=== PATIENT | female | born 1985 | race Caucasian/White ===

== ENCOUNTER 2017-01-18 18:43 | Emergency (ER) | payer SELFPAY ==
[~2017-01-18] VITALS: Ht 175.3 cm; Wt 108.4 kg
[~2017-01-18 18:43] MED LIST: ACHD5005 PO; ALBU17AE23 IH; ALPR2TAB2 PO; AMLO10TA82; ASEN10TA9 SL; ASEN5TAB7 SL; BENZ100C18 PO; CEFP500T4 PO; CHLO500T2 PO; CLIN300C3 PO; CLN150C PO; CYCL10TA9 PO; DOXE10CA PO; DOXY100C2 PO; DULO60CA6 PO; EST.1TD TD; ESTR1TAB27 PO; GBPN100C PO; GUAN1TAB PO; HYDR-1231 PO; HYDR-3714 PO; LAMO150T2 PO; LAMO50TA3 PO; LISD40CA3; LITH300C; MELO15TA14 PO; METH4TAB PO; METR500T PO; NAPR220C PO; NITR100C3 PO; OLN10T PO; ONDAN4ODT PO; OXYC-12 PO; PHEN100T26 PO; PNT40TEC PO; PRD20T PO; PRED20TA PO; PROP1TAB77; PROVERA; QUET400T PO; SUCR1TAB PO; SULF1TAB35 PO; SULF1TAB38 PO; TEMA30CA; TMZP15C PO; TPR100T PO; TRAM50TA2 PO; TRAZ150T42 PO; TRIA0.253 PO; TRIA16.5 NS; ZOLP12.5 PO; [UNRECOGNIZED DRUG - OTHER]
--- OUTSIDE RECORDS SUMMARY | 2017-01-18 18:48 | XMS REPORT | Continuity of Care Document ---
Author Author [facility] Organization [facility] Address Unknown Phone Unavailable Care Team Providers Care Emts Name Role Phone GelacioAlbinoTrini PCP [phone] Source Comments Some departments are not documenting in the electronic medical record. If you do not see the information that you expected, contact Release of Information in the Health Information Management department at [phone] for further assistance in locating additional records.[facility] Active Allergies and Adverse Reactions Allergen Noted Date Severity Reactions Comments Erythromycin 11/03/2016 High ANAPHYLAXIS [place] Juice 11/03/2016 High ANAPHYLAXIS Penicillins 11/03/2016 High ANAPHYLAXIS Remeron 11/03/2016 Medium SHORTNESS OF BREATH Current Medications Prescription Sig. Disp. Refills Start End Date Status Date prazosin (MINIPRESS) 5 mg Take 15 mg by mouth at Active capsule bedtime daily. lithium carbonate Take 300 mg by mouth at Active (ESKALITH) 300 mg capsule bedtime daily. Take with food. carBAMazepine (TEGRETOL) Take 400 mg by mouth Active 200 mg tablet daily. temazepam (RESTORIL) 30 Take 30 mg by mouth at Active mg capsule bedtime as needed. ibuprofen (MOTRIN) 800 mg Take 800 mg by mouth Active tablet every 8 hours as needed for Pain. Take with food. ALPRAZolam(+) (XANAX) 2 Take 1 mg by mouth three Active mg tablet times daily as needed for Anxiety. lisdexamfetamine(+) Take 30 mg by mouth every Active (VYVANSE) 30 mg capsule morning amitriptyline (ELAVIL) 50 Take 50 mg by mouth at Active mg tablet bedtime as needed. methocarbamol (ROBAXIN) Take 1-2 Tabs by mouth 180 Tab 3 12/23/19 Active 500 mg tablet three times daily as 17 needed for Muscle Cramps or Spasms. 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, without status epilepticus 11/03/2016 (HCC) Anxiety 11/03/2016 Chronic bilateral low back pain with bilateral sciatica 11/03/2016 Most Recent Encounters Date Type Specialty Providers Description 01/04/2017 [facility] Naomi Lind MD Encounter 01/04/2017 [facility] Naomi Lind MD Encounter 01/04/2017 Office Visit Neurology Jose Pandey DO Numbness in feet (Primary Dx); Neuropathy of left peroneal nerve 01/04/2017 Ancillary Naomi Lind MD Aneurysm, cerebral Orders (Primary Dx) 01/04/2017 Ancillary Naomi Lind MD Orders 01/02/2017 Screening Form 12/23/2016 Office Visit Pain Management Denny Orourke MD Lumbar radiculopathy (Primary Dx) 12/09/2016 Ancillary Naomi Lind MD Low back pain, Orders unspecified back pain laterality, unspecified chronicity, with sciatica presence unspecified (Primary Dx); Aneurysm, cerebral 12/09/2016 Ancillary Neurology Adrian Young MD 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, intractable, without status epilepticus (HCC) (Primary Dx) 12/09/2016 Ancillary Naomi Lind MD Orders 12/09/2016 Ancillary Naomi Lind MD Orders 12/07/2016 [facility] Janeth Han MD Panniculitis, unspecified Encounter 12/07/2016 [facility] Marco Antonio Vernon Panniculitis, unspecified Encounter 12/07/2016 [facility] Marco Antonio Vernon Encounter MD 12/07/2016 Office Visit Dermatology Janeth Han MD Panniculitis (Primary Dx); Multiple nevi 11/29/2016 Ancillary Naomi Lind MD Orders 11/17/2016 [facility] Naomi Lind MD Encounter 11/03/2016 [facility] Summer Lozoya MBBS Epileptic seizures Encounter related to external causes, not intractable, without status epilepticus (HCC) 11/03/2016 Office Visit General Internal Medicine Summer Lozoya MBBS Peripheral polyneuropathy (HCC) (Primary Dx); 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, without status epilepticus (HCC); Anxiety; Chronic bilateral low back pain with bilateral sciatica Social History Tobacco Use Types Packs/Day Years Used Date Current Every Day Smoker Last Filed Vital Signs Vital Sign Reading Time Taken Blood Pressure 153/101 01/04/2017 1:52 PM [employer] Pulse 66 01/04/2017 1:52 PM [employer] Temperature 36.6 C (97.8 F) 01/04/2017 1:52 PM [employer] Respiratory Rate 18 01/04/2017 1:52 PM [employer] Height 1.753 m (5' 9") 01/04/2017 4:11 PM [employer] Weight 109.77 kg (242 lb) 01/04/2017 4:11 PM [employer] Body Mass Index 35.72 01/04/2017 4:11 PM [employer] Oxygen Saturation 99% 01/04/2017 1:52 PM [employer] Plan of Care Date Type Specialty Providers Description 02/17/2017 Appointment Gastroenterology Giovanni Hurley MD [address] [facility] [address] [place] [address] Health Maintenance Due Date Last Done Comments Physical (Comprehensive) 1994 Exam Pertussis Vaccine 1998 Tetanus Vaccine 2004 Cervical Cancer Screening 2008 Influenza Vaccine 08/21/2017 Postponed from 07/21/2017 (Patient declined) Results from Last 3 Months MRI HEAD WO CONTRAST (01/04/2017 5:45 PM) Impressions MR brain: Unremarkable MRI brain with attention to the temporal lobes. MRA head: Unremarkable MRA head. Approved by Steve Lyles M.D. on 01/05/2017 8:35 AM By my electronic signature, I attest that I have personally reviewed the images for this examination and formulated the interpretations and opinions expressed in this report Finalized by Neel Nagy M.D. on 01/05/2017 9:28 AM. Dictated by Steve Lyles M.D. on 01/05/2017 7:41 AM. Narrative EXAM: MRI AND MRA BRAIN HISTORY: Neuropathy, epilepsy, numbness. TECHNIQUE: Multiplanar and multisequence MR imaging of the head was performed without administration of gadolinium contrast. 3D [id number]-[id number] images of the [place] was performed without contrast. MRA maximum intensity projection images were obtained of the brain with image postprocessing. Additional dedicated coronal sequences were obtained of the mesial temporal lobes. COMPARISON: None. FINDINGS: MR brain: The ventricles and subarachnoid spaces are normal in size and configuration. Brain parenchyma is normal in signal. There is no midline shift or mass effect. There is no area of abnormal contrast enhancement. The vascular flow-voids are unremarkable. Diffusion weighted imaging is not indicative of acute or recent infarct. The temporal lobes are symmetric and without signal abnormality. No migrational anomaly is identified. MRA head: There is patient motion limited evaluation of the basilar and cavernous and supraclinoid internal carotid arteries. The distal internal carotid, vertebral, and basilar arteries are patent without focal narrowing or occlusion. There is incidental origin of the left TRIAL PARALEGAL. The anterior, middle, and posterior cerebral arteries are patent without focal narrowing. No aneurysm or arteriovenous malformation is identified. Procedure Note Interface, Radiant Results - [facility] Jan 05, 2017 9:31 AM [employer] EXAM: MRI AND MRA BRAIN HISTORY: Neuropathy, epilepsy, numbness. TECHNIQUE: Multiplanar and multisequence MR imaging of the head was performed without administration of gadolinium contrast. 3D [id number]-by-[id number] images of the [place] was performed without contrast. MRA maximum intensity projection images were obtained of the brain with image postprocessing. Additional dedicated coronal sequences were obtained of the mesial temporal lobes. COMPARISON: None. FINDINGS: MR brain: The ventricles and subarachnoid spaces are normal in size and configuration. Brain parenchyma is normal in signal. There is no midline shift or mass effect. There is no area of abnormal contrast enhancement. The vascular flow-voids are unremarkable. Diffusion weighted imaging is not indicative of acute or recent infarct. The temporal lobes are symmetric and without signal abnormality. No migrational anomaly is identified. MRA head: There is patient motion limited evaluation of the basilar and cavernous and supraclinoid internal carotid arteries. The distal internal carotid, vertebral, and basilar arteries are patent without focal narrowing or occlusion. There is incidental origin of the left TRIAL PARALEGAL. The anterior, middle, and posterior cerebral arteries are patent without focal narrowing. No aneurysm or arteriovenous malformation is identified. IMPRESSION MR brain: Unremarkable MRI brain with attention to the temporal lobes. MRA head: Unremarkable MRA head. Approved by Steve Lyles M.D. on 01/05/2017 8:35 AM By my electronic signature, I attest that I have personally reviewed the images for this examination and formulated the interpretations and opinions expressed in this report Finalized by Neel Nagy M.D. on 01/05/2017 9:28 AM. Dictated by Steve Lyles M.D. on 01/05/2017 7:41 AM. MRA HEAD WO CONTRAST (01/04/2017 5:45 PM) Impressions MR brain: Unremarkable MRI brain with attention to the temporal lobes. MRA head: Unremarkable MRA head. Approved by Steve Lyles M.D. on 01/05/2017 8:35 AM By my electronic signature, I attest that I have personally reviewed the images for this examination and formulated the interpretations and opinions expressed in this report Finalized by Neel Nagy M.D. on 01/05/2017 9:28 AM. Dictated by Steve Lyles M.D. on 01/05/2017 7:41 AM. Narrative EXAM: MRI AND MRA BRAIN HISTORY: Neuropathy, epilepsy, numbness. TECHNIQUE: Multiplanar and multisequence MR imaging of the head was performed without administration of gadolinium contrast. 3D rxmm-cu-afrpys images of the [place] was performed without contrast. MRA maximum intensity projection images were obtained of the brain with image postprocessing. Additional dedicated coronal sequences were obtained of the mesial temporal lobes. COMPARISON: None. FINDINGS: MR brain: The ventricles and subarachnoid spaces are normal in size and configuration. Brain parenchyma is normal in signal. There is no midline shift or mass effect. There is no area of abnormal contrast enhancement. The vascular flow-voids are unremarkable. Diffusion weighted imaging is not indicative of acute or recent infarct. The temporal lobes are symmetric and without signal abnormality. No migrational anomaly is identified. MRA head: There is patient motion limited evaluation of the basilar and cavernous and supraclinoid internal carotid arteries. The distal internal carotid, vertebral, and basilar arteries are patent without focal narrowing or occlusion. There is incidental origin of the left TRIAL PAR[place]GAL. The anterior, middle, and posterior cerebral arteries are patent without focal narrowing. No aneurysm or arteriovenous malformation is identified. Procedure Note Interface, Radiant Results - [facility] Jan 05, 2017 9:31 AM [employer] EXAM: MRI AND MRA BRAIN HISTORY: Neuropathy, epilepsy, numbness. TECHNIQUE: Multiplanar and multisequence MR imaging of the head was performed without administration of gadolinium contrast. 3D lyvm-hm-qghupn images of the [place] was performed without contrast. MRA maximum intensity projection images were obtained of the brain with image postprocessing. Additional dedicated coronal sequences were obtained of the mesial temporal lobes. COMPARISON: None. FINDINGS: MR brain: The ventricles and subarachnoid spaces are normal in size and configuration. Brain parenchyma is normal in signal. There is no midline shift or mass effect. There is no area of abnormal contrast enhancement. The vascular flow-voids are unremarkable. Diffusion weighted imaging is not indicative of acute or recent infarct. The temporal lobes are symmetric and without signal abnormality. No migrational anomaly is identified. MRA head: There is patient motion limited evaluation of the basilar and cavernous and supraclinoid internal carotid arteries. The distal internal carotid, vertebral, and basilar arteries are patent without focal narrowing or occlusion. There is incidental origin of the left TRIAL [place]. The anterior, middle, and posterior cerebral arteries are patent without focal narrowing. No aneurysm or arteriovenous malformation is identified. IMPRESSION MR brain: Unremarkable MRI brain with attention to the temporal lobes. MRA head: Unremarkable MRA head. Approved by Steve Lyles M.D. on 01/05/2017 8:35 AM By my electronic signature, I attest that I have personally reviewed the images for this examination and formulated the interpretations and opinions expressed in this report Finalized by Neel Nagy M.D. on 01/05/2017 9:28 AM. Dictated by Steve Lyles M.D. on 01/05/2017 7:41 AM. MRI L-SPINE WO CONTRAST (01/04/2017 5:15 PM) Impressions 1. Left foraminal disc herniation at L3-L4 displacing the extraforaminal left L3 nerve. 2. No additional levels of significant degenerative stenosis. 3. Mild degenerative disc disease and posterior annular fissures at L4-5 and L5- S1. 4. 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 Approved by Steve Lyles M.D. on 01/05/2017 8:35 AM By my electronic signature, I attest that I have personally reviewed the images for this examination and formulated the interpretations and opinions expressed in this report Finalized by Neel Nagy M.D. on 01/05/2017 9:33 AM. Dictated by Steve Lyles M.D. on 01/05/2017 7:28 AM. Narrative EXAM: MRI L-SPINE HISTORY: Chronic bilateral low back pain with bilateral sciatica. Numbness in feet. Technique: Multiple sagittal and axial MR sequences were obtained of the lumbar spine without the administration of intravenous contrast. Comparison: None. FINDINGS: There is normal alignment of the lumbar spine. The vertebral body heights are well-maintained apart from a small Schmorl's node within the inferior endplate at L2. There is a small intraosseous hemangioma within the superior left L1 vertebral body. The bone marrow signal is otherwise within normal limits. The paraspinal soft tissues are unremarkable. The visualized bilateral sacroiliac joint spaces are well-maintained. At T12-L1, there is no significant central or neural foraminal stenosis. At L1-2, there is mild disc degeneration and a minimal disc bulge without significant central or neural foraminal stenosis. At L2-3, there is disc degeneration and a small disc bulge resulting in minimal central stenosis without significant neural foraminal stenosis. At L3-4, there is disc degeneration and a left foraminal disc herniation displacing the left L3 nerve root and resulting in mild left neural foraminal stenosis. At L4-5, there is disc degeneration, posterior annular fissure, a small disc bulge, and facet hypertrophy which results in mild right lateral recess stenosis containing conjoined right L5 and S1 nerve roots. At L5-S1, there is disc degeneration, a posterior fissure, without significant central or neural foraminal stenosis. Left L5 and S1 nerve roots are conjoined within the left lateral recess. Procedure Note Interface, Radiant Results - [facility] Jan 05, 2017 9:36 AM [employer] EXAM: MRI L-SPINE HISTORY: Chronic bilateral low back pain with bilateral sciatica. Numbness in feet. Technique: Multiple sagittal and axial MR sequences were obtained of the lumbar spine without the administration of intravenous contrast. Comparison: None. FINDINGS: There is normal alignment of the lumbar spine. The vertebral body heights are well-maintained apart from a small Schmorl's node within the inferior endplate at L2. There is a small intraosseous hemangioma within the superior left L1 vertebral body. The bone marrow signal is otherwise within normal limits. The paraspinal soft tissues are unremarkable. The visualized bilateral sacroiliac joint spaces are well-maintained. At T12-L1, there is no significant central or neural foraminal stenosis. At L1-2, there is mild disc degeneration and a minimal disc bulge without significant central or neural foraminal stenosis. At L2-3, there is disc degeneration and a small disc bulge resulting in minimal central stenosis without significant neural foraminal stenosis. At L3-4, there is disc degeneration and a left foraminal disc herniation displacing the left L3 nerve root and resulting in mild left neural foraminal stenosis. At L4-5, there is disc degeneration, posterior annular fissure, a small disc bulge, and facet hypertrophy which results in mild right lateral recess stenosis containing conjoined right L5 and S1 nerve roots. At L5-S1, there is disc degeneration, a posterior fissure, without significant central or neural foraminal stenosis. Left L5 and S1 nerve roots are conjoined within the left lateral recess. IMPRESSION 1. Left foraminal disc herniation at L3-L4 displacing the extraforaminal left L3 nerve. 2. No additional levels of significant degenerative stenosis. 3. Mild degenerative disc disease and posterior annular fissures at L4-5 and L5 -S1. 4. 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 Approved by Steve Lyles M.D. on 01/05/2017 8:35 AM By my electronic signature, I attest that I have personally reviewed the images for this examination and formulated the interpretations and opinions expressed in this report Finalized by Neel Nagy M.D. on 01/05/2017 9:33 AM. Dictated by Steve Lyles M.D. on 01/05/2017 7:28 AM. EMG ORDER (01/04/2017)T SPOT TB (12/07/2016 12:03 PM) Component Value Range T Spot TB Negative The test result is Negative because the spot count in (Panel A minus Nil Control) and (Panel B minus Nil Control) is less than or equal to 4. This includes values less than zero.[id number]: Diagnosing or excluding tuberculosis disease, and assessing the probability of LTBI, requires a combination of epidemiological, historical, medical and diagnostic findings that should be taken into account when interpreting T-SPOT.TB test results. Refer to the most recent CDC guidance (http://www.cdc.gov/tb/publications/guidelines/def dee.htm) for detailed recommendations on diagnosing TB infection (including disease) and selecting persons for testing. Guidelines set forth by the Centers of Disease Control and Prevention (CDC) recommend contacts of a person with tuberculosis (TB) disease who have a negative initial interferon-gamma release assay (IGRA) or TST within 8 weeks of exposure be retested 8 - 10 weeks after last exposure. X0d0a Neg Control TB Spot Count 0 Panel A TB Spot Count 0 Panel B TB Spot Count 0 Pos Control TB Spot Count >20 Specimen Blood CHEST 2 VIEWS (12/07/2016 11:27 AM) Impressions No acute cardiopulmonary abnormality. Approved by Sam Barragan M.D. on 12/07/2016 2:53 PM By my electronic signature, I attest that I have personally reviewed the images for this examination and formulated the interpretations and opinions expressed in this report Finalized by Tessy Christian M.D. on 12/07/2016 2:53 PM. Dictated by Sam Barragan M.D. on 12/07/2016 1:23 PM. Narrative CHEST 2 VIEWS Clinical history: Erythema nodosum Comparison: Findings: The cardiac silhouette is normal in size and shape. Pulmonary vasculature is within normal limits. No pleural effusion, focal consolidation, or pneumothorax is identified. None available. Procedure Note Interface, Radiant Results - MonDec 07, 2016 2:56 PM [employer] CHEST 2 VIEWS Clinical history: Erythema nodosum Comparison: Findings: The cardiac silhouette is normal in size and shape. Pulmonary vasculature is within normal limits. No pleural effusion, focal consolidation, or pneumothorax is identified. None available. IMPRESSION No acute cardiopulmonary abnormality. Approved by Sam Barragan M.D. on 12/07/2016 2:53 PM By my electronic signature, I attest that I have personally reviewed the images for this examination and formulated the interpretations and opinions expressed in this report Finalized by Tessy Christian M.D. on 12/07/2016 2:53 PM. Dictated by Sam Barragan M.D. on 12/07/2016 1:23 PM. SURGICAL PATHOLOGY (12/07/2016 11:18 AM) Component Value Range PATHOLOGY REPORT [facility] [email or web address] Christine Suarez MD, PhD, Director of Anatomic Pathology Department of Pathology and Laboratory Medicine [address] [place] [id number] Surgical Pathology Office: [phone] SURGICAL PATHOLOGY REPORT NAME: COLBY MITCHELL SURG PATH #: [id number] MR #: [id number] SPECIMEN CLASS: SR BILLING #: [id number] ALT ID #: LOCATION: DERM DATE OF PROCEDURE: 12/07/2016 AGE: 31 SEX: F DATE RECEIVED: 12/07/2016 : 1985 TIME RECEIVED: 11:18 PHYSICIAN: MARCO ANTONIO VERNON MD DATE OF REPORT: 12/08/2016 COPY TO: JANETH HAN DATE OF PRINTIN12/08/2016 ################################################## ###################### Final Diagnosis: A. Left lower leg: -- Septal panniculitis with eosinophils, compatible with erythema nodosum Attestation: By this signature, I attest that I have personally formulated the final interpretation expressed in this report and that the above diagnosis is based upon my examination of the slides and/or other material indicated in this report. +++Electronically Signed Out By+++ gf/12/08/2016 Interpreted by: Bal Medina MD, Attending Physician 12/08/2016 ################################################## ###################### Material Received: A: left lower leg History: A. Erythema nodosum >other panniculitis Gross Description: A. Labeled "left lower leg" is a 0.6 cm in length by 0.4 cm in diameter punch, bisected, all in A1. (jdn) jdn2/12/07/2016 SKIN BIOPSY/EXCISION OF SKIN LESION (12/07/2016 10:54 AM)ANTI-NUCLEAR AB(YANA)- QUANT (11/03/2016 11:17 AM) Component Value Range YANA Titer/Pattern 160 (H)Comment: SPECKLED <80 TOTAL PROTEIN SEP (11/03/2016 11:17 AM) Component Value Range Total Protein 6.7 6.0-8.0 g/dL Specimen Blood HEMOGLOBIN A1C (11/03/2016 11:17 AM) Component Value Range Hemoglobin A1C 5.3Comment: 4.0-6.0 % The ADA recommends that most patients with type 1 and type 2 diabetes maintain an A1c level <7%. Specimen Blood CBC AND DIFF (11/03/2016 11:17 AM) Component Value Range White Blood Cells 6.0 4.5-11.0 K/UL RBC 4.23 4.0-5.0 M/UL Hemoglobin 13.4 12.0-15.0 GM/DL Hematocrit 39.9 36-45 % MCV 94.3 80-100 FL MCH 31.7 26-34 PG MCHC 33.6 32.0-36.0 G/DL RDW 12.9 11-15 % Platelet Count 270 150-400 K/UL MPV 7.6 7-11 FL Neutrophils 62 41-77 % Lymphocytes 30 24-44 % Monocytes 5 4-12 % Eosinophils 2 0-5 % Basophils 1 0-2 % Absolute Neutrophil Count 3.80 1.8-7.0 K/UL Absolute Lymph Count 1.80 1.0-4.8 K/UL Absolute Monocyte Count 0.30 0-0.80 K/UL Absolute Eosinophil Count 0.10 0-0.45 K/UL Absolute Basophil Count 0.00 0-0.20 K/UL Specimen Blood SED RATE (11/03/2016 11:17 AM) Component Value Range Sed Rate -ESR 7 0-20 MM/HR Specimen Blood ELECTROPHORESIS-SERUM PROTEIN (11/03/2016 11:17 AM) Component Value Range Total Protein-SEP 6.6 6.0-8.0 G/DL Albumin % 61.9 48-68 % Alpha 1 % 4.9 2-6 % Alpha 2 % 13.0 5-15 % Beta %,Serum 9.8 9-17 % Gamma % 10.4 9-21 % Interpretation - SEP NORMAL ELECTROPHORETIC PATTERN Pathologist Signature INTERPRETED BY EDA FLEMING M.D. By the PATH SIGNATURE ABOVE, I attest that I have personally formulated the final interpretation expressed in this report and that the above diagnosis is based upon my examination of the slides and/or other material indicated in this report. Specimen Blood VITAMIN B12 (11/03/2016 11:17 AM) Component Value Range Vitamin B12 219 180-914 PG/ML Specimen Blood FOLATE, SERUM (11/03/2016 11:17 AM) Component Value Range Serum Folate 6.8Comment: NOTE NEW REFERENCE RANGES >3.9 NG/ML Specimen Blood ANTI-NUCLEAR ANTIBODY(YANA) (11/03/2016 11:17 AM) Component Value Range YANA Screen SEE TITER <80 TITER Specimen Blood RHEUMATOID FACTOR (RF) (11/03/2016 11:17 AM) Component Value Range Rheum Factor Screen <20 <24 IU/mL Specimen Blood COMPREHENSIVE METABOLIC PANEL (11/03/2016 11:17 AM) Component Value Range Sodium 140 137-147 MMOL/L Potassium 4.1 3.5-5.1 MMOL/L Chloride 106 98-110 MMOL/L Glucose 97 70-100 MG/DL Blood Urea Nitrogen 10 7-25 MG/DL Creatinine 0.91 0.4-1.00 MG/DL Calcium 9.6 8.5-10.6 MG/DL Total Protein 6.9 6.0-8.0 G/DL Total Bilirubin 0.3 0.3-1.2 MG/DL Albumin 4.3 3.5-5.0 G/DL Alk Phosphatase 70 25-110 U/L AST (SGOT) 13 7-40 U/L CO2 31 (H) 21-30 MMOL/L ALT (SGPT) 14 7-56 U/L Anion Gap 3 3-12 eGFR Non >60Comment: >60 mL/min The eGFR is not validated for use in drug dosing adjustments. Continue to use estimated creatinine clearance per dosing reference text. Please contact the Clinical Pharmacist for questions. eGFR >60Comment: >60 mL/min The eGFR is not validated for use in drug dosing adjustments. Continue to use estimated creatinine clearance per dosing reference text. Please contact the Clinical Pharmacist for questions. Specimen Blood TSH WITH FREE T4 REFLEX (11/03/2016 11:17 AM) Component Value Range TSH 1.252 0.35-5.00 MCU/ML Specimen Blood
--- NOTE | 2017-01-18 18:54 | ED Dyspnea ---
General Stated Complaint: TROUBLE BREATHING Source of Information: Patient Exam Limitations: No Limitations History of Present Illness Time Seen by Provider: 18:53 Initial Comments To ER with reports of dyspnea. She states that she's been battling an upper respiratory infection with a cough, runny nose, sore throat and fever for the past few days. She has a history of asthma and today she became significantly short of breath and nearly blacked out at work. Timing/Duration: Increasing Severity: Moderate Activities at Onset: None Associated Symptoms: Cough Allergies and Home Medications Allergies Coded Allergies: erythromycin base (Verified Allergy, Unknown, 01/11/06) lidocaine (Verified Allergy, Unknown, 07/02/10) PT STATES THAT SHE IS OKAY WITH THE LIDOCAINE THEY USE WITH IV STARTS penicillin G (Verified Allergy, Unknown, 01/11/06) mirtazapine (Verified Adverse Reaction, Unknown, ANGRY, 05/11/15) Uncoded Allergies: ORANGE JUICE (Allergy, Severe, STOPPED BREATHING, 02/24/11) Home Medications Alprazolam 2 Mg Tablet 2 MG PO TID (Reported) Lamotrigine 150 Mg Tablet 150 MG PO BID (Reported) Lisdexamfetamine Dimesylate 40 Mg Capsule #30 (Reported) [place] Carbonate 300 Mg Capsule #30 300 (Reported) Meloxicam 15 Mg Tablet #10 15 MG PO DAILY Prescribed by: BLUE LOVE on 07/26/16 1425 Naproxen Sodium 220 Mg Capsule 220 MG PO BID (Reported) Ondansetron Hcl 4 Mg Tab #5 4 MG PO Q4H FOR NAUSEA AND VOMITING Prescribed by: BLUE LOVE on 10/09/13 2323 Prednisone 20 Mg Tab #10 40 MG PO DAILY Prescribed by: BHARATI WELLS on 07/02/16 1532 Sulfamethoxazole/Trimethoprim 1 Each Tablet #20 1 EACH PO BID Prescribed by: BLUE LOVE on 07/26/16 1425 Temazepam 30 Mg Capsule #30 (Reported) Topiramate 100 Mg Tablet 100 MG PO BID (Reported) Tramadol HCl 50 Mg Tablet #14 50 MG PO Q4H PRN PRN PAIN Prescribed by: BHARATI WELLS on 07/02/16 1532 Constitutional: see HPI EENTM: see HPI Respiratory: see HPI coughNo hemoptysis, No orthopnea, No phlegm, short of breathNo wheezing Cardiovascular: no symptoms reported Genitourinary: no symptoms reported Musculoskeletal: no symptoms reported Skin: no symptoms reported Psychiatric/Neurological: No Symptoms Reported Endocrine: No Symptoms Reported Past Uicdlxb-[id number]-Shieke Hx Patient Social History Type Used: Cigarettes Recent Foreign Travel: No Contact w/Someone Who Travel: No Recent Hopitalizations: No Immunizations Up To Date Tetanus Booster (TDap): More than 5yrs Date of Pneumonia Vaccine: Sep 27, 2010 Date of Influenza Vaccine: Jul 21, 2013 Seasonal Allergies Seasonal Allergies: No Surgeries HX Surgeries: Yes Surgeries: Abdominal, Section, Gallbladder, Hysterectomy, Oophorectomy , Orthopedic Respiratory Hx Respiratory Disorders: Yes Respiratory Disorders: Asthma Cardiovascular Hx Cardiac Disorders: Yes (HTN WITH WEIGHT GAIN) Cardiac Disorders: Hypertension, Irregular Heartbeat Neurological Hx Neurological Disorders: Yes Neurological Disorders: Concussion, Seizure Disorder Reproductive System Hx Reproductive Disorders: No Sexually Transmitted Disease: No HIV/AIDS: No Female Reproductive Disorders: Menstrual Problems, Ovarian Cyst [employer] History: Hysterectomy Genitourinary Hx Genitourinary Disorders: Yes (INTERSTITIAL CYSTITIS) Genitourinary Disorders: UTI-Chronic Gastrointestinal Hx Gastrointestinal Disorders: Yes (S/P ASHVIN; BENIGN COLON TUMOR-PER PT) Gastrointestinal Disorders: Gall Bladder Disease Musculoskeletal Hx Musculoskeletal Disorders: Yes Musculoskeletal Disorders: Fractures Endocrine Hx Endocrine Disorders: No HEENT HX ENT Disorders: No Cancer Hx Cancer: No Psychosocial Hx Psychiatric Problems: Yes Behavioral Health Disorders: Anxiety, Bipolar, Personality Disorder, Schizophrenia, Depression Integumentary HX Skin/Integumentary Disorder: No Blood Transfusions Hx Blood Disorders: No Adverse Reaction to a Blood Tr: No Family Medical History Significant Family History: No Pertinent Family Hx Family Medial History: Cancer GRANDPARENTS Cataract GRANDPARENTS Congestive heart failure GRANDPARENTS Family history: Alzheimer's disease GRANDPARENTS Family history: Arthritis GRANDPARENTS Family history: Asthma 03 MOTHER 09 BROTHER GRANDPARENTS Family history: Cardiovascular disease GRANDPARENTS Family history: Diabetes mellitus GRANDPARENTS Family history: Hypertension 03 MOTHER GRANDPARENTS Heart disease 09 BROTHER GRANDPARENTS History of - respiratory disease GRANDPARENTS Kidney disease 09 BROTHER Prostate cancer GRANDPARENTS Stroke GRANDPARENTS No Family History of: Abdominal aortic aneurysm Family history: Breast disease Family history: Gastrointestinal disease Family history: Thyroid disorder Physical Exam Vital Signs Vital Sign - Last 12Hours 01/18/17 18:55 Temp 98.1 Pulse 75 Resp 16 B/P 138/74 Pulse Ox 100 O2 Delivery Room Air Capillary Refill : General Appearance: No Apparent Distress WD/WNNo Anxious HEENT: PERRL/EOMI TMs Normal Neck: Full Range of Motion Normal Inspection Respiratory: No Accessory Muscle Use No Respiratory Distress Other (good air movement with no wheezing. Oxygen saturation 100 percent on room air. Respiratory rate 30s) Cardiovascular: Regular Rate, Rhythm Normal Peripheral Pulses Gastrointestinal: Normal Bowel Sounds Non Tender Soft Neurologic/Psychiatric: Alert Oriented x3 Progress/Results/Core Measures Results/Orders Lab Results Laboratory Tests Test 01/18/17 19:09 01/18/17 19:55 Range/Units Anion Gap 17 H 5-14 MMOL/L BUN/Creatinine Ratio 10 Basophils # (Auto) 0.0 0.0-0.1 10^3/uL Basophils (%) (Auto) 0 0-10 % Blood Urea Nitrogen 9 7-18 MG/DL Calcium Level 9.6 8.5-10.1 MG/DL Carbon Dioxide Level 18 L 21-32 MMOL/L Chloride Level 106 98-107 MMOL/L Creatinine 0.93 0.60-1.30 MG/DL D-Dimer 0.50 H 0.00-0.49 UG/ML Eosinophils # (Auto) 0.0 0.0-0.3 10^3/uL Eosinophils (%) (Auto) 0 0-10 % Estimat Glomerular Filtration Rate > 60 Glucose Level 93 70-105 MG/DL Hematocrit 41 35-52 % Hemoglobin 13.9 11.5-16.0 G/DL Lymphocytes # (Auto) 2.0 1.0-4.0 X 10^3 Lymphocytes (%) (Auto) 21 12-44 % Mean Corpuscular Hemoglobin 31 25-34 PG Mean Corpuscular Hemoglobin Concent 34 32-36 G/DL Mean Corpuscular Volume 92 80-99 FL Mean Platelet Volume 9.8 7.4-10.4 FL Monocytes # (Auto) 0.6 0.0-1.0 X 10^3 Monocytes (%) (Auto) 6 0-12 % Neutrophils # (Auto) 6.7 1.8-7.8 X 10^3 Neutrophils (%) (Auto) 72 42-75 % Platelet Count 301 130-400 10^3/uL Potassium Level 3.1 L 3.6-5.0 MMOL/L Red Blood Count 4.44 4.35-5.85 10^6/uL Red Cell Distribution Width 12.0 10.0-14.5 % Sodium Level 141 135-145 MMOL/L White Blood Count 9.3 4.3-11.0 10^3/uL Urine Bacteria NONE /HPF Urine Bilirubin NEGATIVE NEGATIVE Urine Casts NONE /LPF Urine Clarity CLEAR Urine Color OTHER H Urine Crystals NONE /LPF Urine Culture Indicated NO Urine Glucose (UA) NEGATIVE NEGATIVE Urine Ketones NEGATIVE NEGATIVE Urine Leukocyte Esterase 1+ H NEGATIVE Urine Mucus NEGATIVE /LPF Urine Nitrite NEGATIVE NEGATIVE Urine Protein NEGATIVE NEGATIVE Urine RBC RARE /HPF Urine RBC (Auto) NEGATIVE NEGATIVE Urine Specific [place] 1.010 L 1.016-1.022 Urine Squamous Epithelial Cells 0-2 /HPF Urine Urobilinogen NORMAL NORMAL MG/DL Urine WBC 2-5 /HPF Urine pH 7 5-9 My Orders Orders-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 Cbc With Automated Diff (01/18/17 18:51) Basic Metabolic Panel (01/18/17 18:51) Chest Pa/Lat (2 View) (01/18/17 18:51) Urine Bedside (01/18/17 18:51) Ua Culture If Indicated (01/18/17 18:51) Fibrin Degradation Products (01/18/17 18:51) Alprazolam Tablet (Xanax Tablet) (01/18/17 19:00) Potassium Chloride (Tablet) (Klor Con Ta (01/18/17 19:45) Ct Angio Chest W (01/18/17 19:45) Iohexol Injection (Omnipaque 350 Mg/Ml 1 (01/18/17 20:15) Di Iv Start (Assessment) .on IV start (01/18/17 20:01) Ns (Ivpb) (Sodium Chloride 0.9% Ivpb Bag (01/18/17 20:15) Medications Given in ED Current Medications Medications Dose Ordered Sig/Roland Route Start Time Stop Time Status Last Admin Dose Admin Iohexol 100 ml ONCE ONCE IV 01/18/17 20:15 01/18/17 20:16 DC 01/18/17 20:03 100 ML Sodium Chloride 100 ml ONCE ONCE IV 01/18/17 20:15 01/18/17 20:16 DC 01/18/17 20:03 100 ML Vital Signs/I&O Vital Sign - Last 12Hours 01/18/17 01/18/17 18:55 18:55 Temp 98.1 Pulse 75 Resp 16 B/P 138/74 Pulse Ox 100 O2 Delivery Room Air Room Air Departure Communication Progress Notes 2025-patient feels much better after 0.5 mg Xanax Impression Impression: Primary Impression: Anxiety Additional Impression: Bronchitis Disposition: HOME, SELF-CARE Condition: Stable Departure-Patient Inst. Decision time for Depature: 20:26 Referrals: [facility] (PCP/Family) Primary Care Physician Patient Instructions: Acute Bronchitis in Adults Add. Discharge Instructions: 1. Return to ER for any concerns 2. Follow-up with your doctor next week 3. Medication as directed Scripts D-Methorphan Hb/P-Epd HCl/Bpm (Bromfed Dm Cough Syrup)118 Ml Syrup5 Ml PO Q8H PRN CONGESTION #30 ML Prov:GERSON JAEGER APRN 01/18/17 GERSON JAEGER APRN Jan 18, 2017 18:54
[2017-01-18] MEDS ORDERED: ALPRAZolam 0.5 MG (XANAX) TAB PO SCH (19:00)
[2017-01-18 19:20] LABS: BASOPHILS % (AUTO) 0 % (0-10); EOSINOPHILS % (AUTO) 0 % (0-10); LYMPHOCYTES % (AUTO) 21 % (12-44); MEAN CORPUSCULAR HEMOGLOBIN 31 PG (25-34); MEAN CORPUSCULAR HGB CONC 34 G/DL (32-36); MEAN CORPUSCULAR VOLUME 92 FL (80-99); MEAN PLATELET VOLUME 9.8 FL (7.4-10.4); MONOCYTES # (AUTO) 0.6 X 10^3 (0.0-1.0); MONOCYTES % (AUTO) 6 % (0-12); NEUTROPHILS # (AUTO) 6.7 X 10^3 (1.8-7.8); NEUTROPHILS % (AUTO) 72 % (42-75); PLATELET COUNT 301 10^3/uL (130-400); RED BLOOD COUNT 4.44 10^6/uL (4.35-5.85); WHITE BLOOD COUNT 9.3 10^3/uL (4.3-11.0)
[2017-01-18 19:36] LABS: ANION GAP 17 MMOL/L (5-14); BLOOD UREA NITROGEN 9 MG/DL (7-18); BUN/CREATININE RATIO 10; CALCIUM 9.6 MG/DL (8.5-10.1); CARBON DIOXIDE 18 MMOL/L (21-32); CHLORIDE 106 MMOL/L (98-107); CREATININE SERUM 0.93 MG/DL (0.60-1.30); GFR ESTIMATED > 60; GLUCOSE 93 MG/DL (70-105); POTASSIUM 3.1 MMOL/L (3.6-5.0); SODIUM 141 MMOL/L (135-145)
[2017-01-18] MEDS ORDERED: KCL 10 MEQ TAB (MICRO K) PO ONE (19:45)
--- NOTE | 2017-01-18 20:00 | Diagnostic Imaging Report ---
INDICATION: A 32-year-old female with new onset of shortness of breath and chest pain. COMPARISON: CT chest dated 03/12/2014. FINDINGS: PA and lateral films of the chest show slight prominence of the central lung markings with some peribronchial cuffing. Some minimal perihilar and left basilar atelectatic infiltrates are seen but no significant consolidations. Cardiac contour is normal. Soft tissues and bony thorax are unremarkable. IMPRESSION: Reactive airway disease versus viral lower respiratory tract infection with some minimal perihilar and basilar atelectatic infiltrates but no significant consolidations. Dictated by: Dictated on workstation # [id number]
[2017-01-18 20:03] LABS: BILIRUBIN,URINE NEGATIVE (NEGATIVE); KETONES,URINE NEGATIVE (NEGATIVE); LEUKOCYTE ESTERASE ,URINE 1+ (NEGATIVE); NITRITE,URINE NEGATIVE (NEGATIVE); PH,URINE 7 (5-9); PROTEIN,URINE NEGATIVE (NEGATIVE); UROBILINOGEN,URINE NORMAL (NORMAL)
[2017-01-18 20:11] LABS: SQUAMOUS EPITHELIAL CELL,UR 0-2 /HPF
[2017-01-18] MEDS ORDERED: IOHEXOL 350 MG/ML 100 ML (OMNIPAQUE 350) VIAL IV ONE (20:15)
[2017-01-18] MEDS ORDERED: NS 100 ML (IVPB) BAG IV ONE (20:15)
--- NOTE | 2017-01-18 20:21 | Diagnostic Imaging Report ---
PROCEDURE: CT angiography of the chest with contrast. TECHNIQUE: Multiple contiguous axial images were obtained through the chest after uneventful bolus administration of intravenous contrast. Reconstructed CTA MIP acquisitions were also performed. INDICATION: A 32-year-old female presents with generalized malaise, severe shortness of breath, history of asthma, assess for possible pulmonary embolism. COMPARISONS: 05/16/2015. FINDINGS: There are a few shotty benign-appearing axillary nodes, but no evidence of axillary adenopathy. There is no evidence of hilar or mediastinal adenopathy. Cardiac contour is normal. The thoracic aortic contour is normal with no evidence of aneurysm or dissection. The bolus was mistimed, hence the pulmonary arteries are not adequately opacified; however, the pulmonary outflow tract as well as the right and left pulmonary arteries and their segmental branches are patent with no definite evidence of pulmonary embolism. The distal pulmonary arteries are poorly visualized. The lungs are clear with no evidence of consolidation, effusion, or pneumothorax. Limited assessment of the abdomen shows no overall gross abnormalities. IMPRESSION: Suboptimal opacification of the pulmonary arteries, but no CT angiographic evidence for aortic aneurysm, dissection, or pulmonary embolism. The lungs are clear with no evidence of consolidation, effusion, or pneumothorax. Limited assessment of the abdomen shows no gross abnormalities. Dictated by: Dictated on workstation # [id number]
[2017-01-18] MEDS ORDERED: D-ME118S33 PO (20:28)
[2017-01-18] MEDS ORDERED: RX-ALBUTEROL INHALER (VENTOLIN HFA) 18 GM IH STA (20:28)
[2017-01-18 20:31] VITALS: BP 143/86
[2017-01-18] MEDS ORDERED: RX-ALBUTEROL INHALER (PROAIR) 8 GM IH ONE (20:36)
== END 2017-01-18 20:40 | disposition home or self-care (01) ==
LOC: EDUNIT# 18:43 → ER 18:45
DX: J40 Bronchitis, not specified as acute or chronic (principal); F41.9 Anxiety disorder, unspecified; Z79.899 Other long term (current) drug therapy
CPT/HCPCS: 36415; 71020; 71275; 80048; 81000; 85025; 85379; 99283

== ENCOUNTER 2017-02-14 12:51 | Emergency (ER) | payer SELFPAY ==
[~2017-02-14] VITALS: Ht 175.3 cm; Wt 108.9 kg
[~2017-02-14 12:51] MED LIST changes: +D-ME118S33 PO
[2017-02-14] MEDS ORDERED: NS IV 1000 ML 1,000 ML IV ONE (13:42)
[2017-02-14] MEDS ORDERED: ONDANSETRON 4 MG/2 ML (SDV) Z0FRAN IVP ONE ×2 (13:45→16:30)
--- NOTE | 2017-02-14 13:53 | ED General ---
General Chief Complaint: Abdominal/GI Problems Stated Complaint: VOMITING Nursing Triage Note: pt reports n/v since yesterday and generalized body aches. Nursing Sepsis Screen: No Definite Risk Source of Information: Patient Exam Limitations: No Limitations History of Present Illness Time Seen by Provider: 13:53 Initial Comments 32-year-old female patient presents to the emergency department with one day onset of nausea and vomiting. Reports generalized body aches. Denies fever, chills, upper respiratory symptoms, dysuria, frequency, hematuria. Timing/Duration: 1 Day Modifying Factors: worse with Eating Allergies and Home Medications Allergies Coded Allergies: erythromycin base (Verified Allergy, Unknown, 01/11/06) lidocaine (Verified Allergy, Unknown, 07/02/10) PT STATES THAT SHE IS OKAY WITH THE LIDOCAINE THEY USE WITH IV STARTS penicillin G (Verified Allergy, Unknown, 01/11/06) mirtazapine (Verified Adverse Reaction, Unknown, ANGRY, 05/11/15) Uncoded Allergies: ORANGE JUICE (Allergy, Severe, STOPPED BREATHING, 02/24/11) Home Medications Alprazolam 2 Mg Tablet, 2 MG PO TID, (Reported) D-Methorphan Hb/P-Epd HCl/Bpm 118 Ml Syrup, 5 ML PO Q8H PRN for CONGESTION, #30 Prescribed by: GERSON JAEGER on 01/18/172027 Lamotrigine 150 Mg Tablet, 150 MG PO BID, (Reported) Lisdexamfetamine Dimesylate 40 Mg Capsule, #30 (Reported) [place] Carbonate 300 Mg Capsule, 300, #30 (Reported) Meloxicam 15 Mg Tablet, 15 MG PO DAILY, #10 Prescribed by: BLUE LOVE on 07/26/16 1425 Naproxen Sodium 220 Mg Capsule, 220 MG PO BID, (Reported) Nitrofurantoin Monohyd/M-Cryst 100 Mg Capsule, 1 TAB PO BID for 5 Days, #10 Ref 0 Prescribed by: BHARATI WELLS on 02/14/17 1612 Ondansetron 8 Mg Tab.rapdis, 8 MG PO Q6H PRN for NAUSEA/VOMITING, #10 Ref 0 Prescribed by: BHARATI WELLS on 02/14/17 1612 Ondansetron Hcl 4 Mg Tab, 4 MG PO Q4H, #5 FOR NAUSEA AND VOMITING Prescribed by: BLUE LOVE on 10/09/13 2323 Prednisone 20 Mg Tab, 40 MG PO DAILY, #10 Ref 0 Prescribed by: BHARATI WELLS on 07/02/16 1532 Sulfamethoxazole/Trimethoprim 1 Each Tablet, 1 EACH PO BID, #20 Prescribed by: BLUE LOVE on 07/26/16 1425 Temazepam 30 Mg Capsule, #30 (Reported) Topiramate 100 Mg Tablet, 100 MG PO BID, (Reported) Tramadol HCl 50 Mg Tablet, 50 MG PO Q4H PRN for PAIN, #14 Ref 0 Prescribed by: BHARATI WELLS on 07/02/16 1532 Constitutional: No chills, No fever, malaise EENTM: no symptoms reported Respiratory: No cough, No short of breath Cardiovascular: no symptoms reported Gastrointestinal: No abdominal pain, No constipation, No diarrhea, No hematemesis, loss of appetite, No melena, nausea, vomiting Genitourinary: No decreased output, No discharge, No dysuria, No frequency, No hematuria, No pain Musculoskeletal: no symptoms reported Skin: no symptoms reported Psychiatric/Neurological: No Symptoms Reported All Other Systems Reviewed Negative Unless Noted: Yes (Negative excepted noted.) Past Pphpbnt-Dythnu-Pyblnv Hx Patient Social History Alcohol Use: Denies Use Recreational Drug Use: Yes (IN THE PAST) Type Used: Cigarettes Recent Foreign Travel: No Contact w/Someone Who Travel: No Recent Infectious Disease Expo: No Recent Hopitalizations: No Immunizations Up To Date Tetanus Booster (TDap): More than 5yrs Date of Pneumonia Vaccine: Sep 27, 2010 Date of Influenza Vaccine: Jul 21, 2013 Seasonal Allergies Seasonal Allergies: No Surgeries HX Surgeries: Yes (skin graft) Surgeries: Abdominal, Section, Gallbladder, Hysterectomy, Oophorectomy , Orthopedic, Tubal Ligation Respiratory Hx Respiratory Disorders: Yes Respiratory Disorders: Asthma Cardiovascular Hx Cardiac Disorders: Yes (HTN WITH WEIGHT GAIN) Cardiac Disorders: Hypertension, Irregular Heartbeat Neurological Hx Neurological Disorders: Yes Neurological Disorders: Concussion, Seizure Disorder Reproductive System Hx Reproductive Disorders: No Sexually Transmitted Disease: No HIV/AIDS: No Female Reproductive Disorders: Menstrual Problems, 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 Genitourinary Hx Genitourinary Disorders: Yes (INTERSTITIAL CYSTITIS) Genitourinary Disorders: UTI-Chronic Gastrointestinal Hx Gastrointestinal Disorders: Yes (S/P ASHVIN; BENIGN COLON TUMOR-PER PT) Gastrointestinal Disorders: Gall Bladder Disease Musculoskeletal Hx Musculoskeletal Disorders: Yes Musculoskeletal Disorders: Fractures Endocrine Hx Endocrine Disorders: No HEENT HX ENT Disorders: No Cancer Hx Cancer: No Psychosocial Hx Psychiatric Problems: Yes Behavioral Health Disorders: Anxiety, Bipolar, Personality Disorder, Schizophrenia, Depression Integumentary HX Skin/Integumentary Disorder: No Blood Transfusions Hx Blood Disorders: No Adverse Reaction to a Blood Tr: No Reviewed Nursing Assessment Reviewed/Agree w Nursing PMH: Yes Family Medical History Significant Family History: No Pertinent Family Hx Family Medial History: Cancer GRANDPARENTS Cataract GRANDPARENTS Congestive heart failure GRANDPARENTS Family history: Alzheimer's disease GRANDPARENTS Family history: Arthritis GRANDPARENTS Family history: Asthma 03 MOTHER 09 BROTHER GRANDPARENTS Family history: Cardiovascular disease GRANDPARENTS Family history: Diabetes mellitus GRANDPARENTS Family history: Hypertension 03 MOTHER GRANDPARENTS Heart disease 09 BROTHER GRANDPARENTS History of - respiratory disease GRANDPARENTS Kidney disease 09 BROTHER Prostate cancer GRANDPARENTS Stroke GRANDPARENTS No Family History of: Abdominal aortic aneurysm Family history: Breast disease Family history: Gastrointestinal disease Family history: Thyroid disorder Physical Exam Vital Signs Capillary Refill : Less Than 3 Seconds General Appearance: No Apparent Distress, WD/WN HEENT: PERRL/EOMI, Pharynx Normal Neck: Normal Inspection, Supple Respiratory: Lungs Clear, Normal Breath Sounds, No Respiratory Distress Cardiovascular: Regular Rate, Rhythm, No Murmur, Normal Peripheral Pulses Gastrointestinal: Normal Bowel Sounds, No Organomegaly, Non Tender, Soft, No Distended Back: Normal Inspection, No CVA Tenderness Extremity: Normal Capillary Refill, No Pedal Edema Neurologic/Psychiatric: Alert, Oriented x3, Normal Mood/Affect Skin: Normal Color, Warm/Dry Progress/Results/Core Measures Results/Orders Lab Results My Orders Medications Given in ED Vital Signs/I&O Blood Pressure Mean: 111 Departure Communication Progress Notes Laboratory findings discussed with the patient. Patient reports feeling better with medications and IV fluids. Proceed with discharge to home. Patient instructed to follow-up with her primary care physician if no improvement in symptoms. Impression Impression: Primary Impression: Urinary tract infection Additional Impression: Nausea and vomiting Disposition: 01 HOME, SELF-CARE Condition: Improved Departure-Patient Inst. Decision time for Depature: 16:08 Referrals: [facility] (PCP/Family) Primary Care Physician Patient Instructions: [id number], Urinary Tract Infection, Adult (DC) Add. Discharge Instructions: All discharge instructions reviewed with patient and/or family. Voiced understanding. Medications as instructed. Tylenol Extra Strength [id number] as directed for pain or fever. Ibuprofen 800 mg by mouth every 8 hours as needed for pain or fever. Push fluids. Clear liquid diet until symptoms improve, then increase diet slowly to a low-fat , bland diet. Follow-up with the family practitioner for recheck if no improvement in symptoms. Return to the emergency department immediately for worsened vomiting, diarrhea, fever, decreased urination, inability urinate, blood in the urine, rectal bleeding, vomiting blood, or any other concerns. Scripts Nitrofurantoin Monohyd/M-Cryst (Macrobid 100 mg Capsule) 100 Mg Capsule 1 TAB PO BID for 5 Days, #10 CAP 0 Refills Prov: BHARATI WELLS 02/14/17 Ondansetron (Ondansetron Odt) 8 Mg Tab.rapdis 8 MG PO Q6H Y for NAUSEA/VOMITING, #10 TAB 0 Refills Prov: BHARATI WELLS 02/14/17 Work/School Note: Work Release Form Date Seen in the Emergency Department: Feb 14, 2017 Return to Work: Feb 16, 2017 Restrictions: Return-No Fever (24hrs), Return-No Vomiting(24hrs) BHARATI WELLS Feb 14, 2017 13:53
[2017-02-14 14:16] LABS: BASOPHILS % (AUTO) 0 % (0-10); EOSINOPHILS # (AUTO) 0.1 10^3/uL (0.0-0.3); EOSINOPHILS % (AUTO) 1 % (0-10); LYMPHOCYTES # (AUTO) 0.6 X 10^3 (1.0-4.0); LYMPHOCYTES % (AUTO) 11 % (12-44); MEAN CORPUSCULAR HEMOGLOBIN 32 PG (25-34); MEAN CORPUSCULAR HGB CONC 35 G/DL (32-36); MEAN CORPUSCULAR VOLUME 92 FL (80-99); MONOCYTES # (AUTO) 0.2 X 10^3 (0.0-1.0); MONOCYTES % (AUTO) 3 % (0-12); NEUTROPHILS % (AUTO) 84 % (42-75); PLATELET COUNT 220 10^3/uL (130-400); RED BLOOD COUNT 4.49 10^6/uL (4.35-5.85); RED CELL DISTRIBUTION WIDTH 12.2 % (10.0-14.5); WHITE BLOOD COUNT 5.9 10^3/uL (4.3-11.0)
[2017-02-14 14:37] LABS: ALANINE AMINOTRANSFERASE 12 U/L (0-55); ALBUMIN 4.1 G/DL (3.2-4.5); ANION GAP 9 MMOL/L (5-14); ASPARTATE AMINO TRANSFERASE 13 U/L (5-34); BILIRUBIN,TOTAL 0.7 MG/DL (0.1-1.0); BLOOD UREA NITROGEN 11 MG/DL (7-18); BUN/CREATININE RATIO 11; CALCIUM 9.3 MG/DL (8.5-10.1); CARBON DIOXIDE 27 MMOL/L (21-32); CHLORIDE 104 MMOL/L (98-107); CREATININE SERUM 0.97 MG/DL (0.60-1.30); GFR ESTIMATED > 60; GLUCOSE 102 MG/DL (70-105); LIPASE 20 U/L (8-78); POTASSIUM 3.9 MMOL/L (3.6-5.0); SODIUM 140 MMOL/L (135-145); TOTAL PROTEIN 6.4 G/DL (6.4-8.2)
[2017-02-14 15:12] LABS: BILIRUBIN,URINE NEGATIVE (NEGATIVE); KETONES,URINE NEGATIVE (NEGATIVE); LEUKOCYTE ESTERASE ,URINE 2+ (NEGATIVE); NITRITE,URINE NEGATIVE (NEGATIVE); PH,URINE 8 (5-9); PROTEIN,URINE 2+ (NEGATIVE); UROBILINOGEN,URINE 4 MG/DL (NORMAL)
[2017-02-14] MEDS ORDERED: ONDA8TAB13 PO (16:12)
[2017-02-14] MEDS ORDERED: NITR-65 PO (16:12)
[2017-02-14] MEDS ORDERED: ONDANSETRON 4 MG/2 ML (SDV) Z0FRAN ONE (16:14)
[2017-02-14 16:20] VITALS: BP 132/94
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
--- OUTSIDE RECORDS SUMMARY | 2017-03-05 04:25 | XMS REPORT | Continuity of Care Document ---
Author Author [facility] Organization [facility] Address Unknown Phone Unavailable Care Team Providers Care Head Paper Tester Name Role Phone Devora Summer PCP [phone] Source Comments Some departments are not documenting in the electronic medical record. If you do not see the information that you expected, contact Release of Information in the Health Information Management department at [phone] for further assistance in locating additional records.[facility] Active Allergies and Adverse Reactions Allergen Noted Date Severity Reactions Comments Erythromycin 11/03/2016 High ANAPHYLAXIS [place] Juice 11/03/2016 High ANAPHYLAXIS Penicillins 11/03/2016 High [...] at Active mg tablet bedtime as needed. ondansetron (ZOFRAN ODT) Dissolve 8 mg by mouth Active 8 mg rapid dissolve every 8 hours as needed tablet for Nausea or Vomiting. Place on tongue to disolve. tiZANidine (ZANAFLEX) 2 Take 1-2 Tabs by mouth 90 Tab 2 02/18/20 Active mg tablet three times daily as 17 needed. lidocaine(+) 5 % oint Apply topically to 1 Tube 3 02/18/20 Active topical ointment affected area three times 17 daily as needed (pain). methocarbamol (ROBAXIN) Take 1-2 Tabs by mouth 180 Tab 3 12/23/19 Discontin 500 mg tablet three times daily as 17 17 ued needed for Muscle Cramps or Spasms. 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, without status epilepticus 11/03/2016 (HCC) Anxiety 11/03/2016 Chronic bilateral low back pain with bilateral sciatica 11/03/2016 Most Recent Encounters Date Type Specialty Providers Description 02/17/2017 Office Visit Pain Management Denny Orourke MD Chronic left- sided low back pain with left-sided sciatica (Primary Dx); Lumbar radiculopathy; Peroneal neuropathy, left 01/04/2017 [facility] Radiology Naomi Lind MD Encounter 01/04/2017 [facility] Radiology Naomi Lind MD Encounter 01/04/2017 Office [...] 12/09/2016 Ancillary Naomi Lind MD Orders 12/07/2016 [facility] Janeth Han MD Panniculitis, unspecified Encounter 12/07/2016 [facility] Marco Antonio Vernon Panniculitis, unspecified Encounter 12/07/2016 [facility] Radiology Marco Antonio Vernon, Encounter 12/07/2016 Office Visit Dermatology Janeth Han MD Panniculitis (Primary Dx); Multiple nevi Social History Tobacco Use Types Packs/Day Years Used Date Current Every Day Smoker Last Filed Vital Signs Vital Sign Reading Time Taken Blood Pressure 147/85 02/17/2017 10:03 AM CDT Pulse 69 02/17/2017 10:03 AM CDT Temperature 36.4 C (97.5 F) 02/17/2017 10:03 AM CDT Respiratory Rate 16 02/17/2017 10:03 AM CDT Height 1.753 m (5' 9") 02/17/2017 10:03 AM CDT Weight 104.327 kg (230 lb) 02/17/2017 10:03 AM CDT Body Mass Index 33.95 02/17/2017 10:03 AM CDT Oxygen Saturation 99% 01/04/2017 1:52 PM [employer] Plan of Care Health Maintenance Due Date Last Done Comments Physical (Comprehensive) 1994 Exam Pertussis Vaccine 1998 Tetanus Vaccine 2004 Cervical Cancer Screening 2008 Influenza Vaccine 08/21/2017 Postponed from 07/21/2017 (Patient declined) Results from Last 3 Months * MRI HEAD WO CONTRAST (01/04/2017 5:45 PM) [...] performed without administration of gadolinium contrast. 3D lxsr-ba-xaxpbx images of the [place] of [place] was performed without contrast. MRA [...] There is incidental origin of the left STEM ROLLER. The anterior, middle, and posterior cerebral arteries are patent without focal narrowing. No aneurysm or arteriovenous malformation is identified. Procedure Note Interface, Radiant Results - [facility] Jan 05, 2017 9:31 AM [employer] EXAM: MRI AND MRA BRAIN HISTORY: Neuropathy, epilepsy, numbness. TECHNIQUE: Multiplanar and multisequence MR imaging of the head was performed without administration of gadolinium contrast. 3D lnas-il-lwzntz images of the [place] was performed without contrast. MRA [...] There is incidental origin of the left STEM ROLLER. The anterior, middle, and posterior cerebral arteries [...] Steve Lyles M.D. on 01/05/2017 7:41 AM. * MRA HEAD WO CONTRAST (01/04/2017 5:45 PM) [...] M.D. on 01/05/2017 9:28 AM. Dictated by Stvee Lyles M.D. on 01/05/2017 7:41 AM. Narrative EXAM: MRI AND MRA BRAIN HISTORY: Neuropathy, epilepsy, numbness. TECHNIQUE: Multiplanar and multisequence MR imaging of the head was performed without administration of gadolinium contrast. 3D bcba-ev-ljxrcl images of the [place] of [place] was performed without contrast. MRA [...] There is incidental origin of the left STEM ROLLER. The anterior, middle, and posterior cerebral arteries are patent without focal narrowing. No aneurysm or arteriovenous malformation is identified. Procedure Note Interface, Radiant Results - [facility] Jan 05, 2017 9:31 AM [employer] EXAM: MRI AND MRA BRAIN HISTORY: Neuropathy, epilepsy, numbness. TECHNIQUE: Multiplanar and multisequence MR imaging of the head was performed without administration of gadolinium contrast. 3D lzug-cb-vlagxt images of the [place] of [place] was performed without contrast. MRA [...] There is incidental origin of the left STEM ROLLER. The anterior, middle, and posterior cerebral arteries [...] Steve Lyles M.D. on 01/05/2017 7:41 AM. * MRI L-SPINE WO CONTRAST (01/04/2017 5:15 PM) [...] recess. Procedure Note Interface, Radiant Results - [facility] Jan 05, 2017 9:36 AM [employer] EXAM: MRI L-SPINE HISTORY: Chronic bilateral low [...] Steve Lyles M.D. on 01/05/2017 7:28 AM. * EMG ORDER (01/04/2017) * T SPOT TB (12/07/2016 12:03 PM) Component Value Range T Spot TB Negative The test result is Negative because the spot count in (Panel A minus Nil Control) and (Panel B minus Nil Control) is less than or equal to 4. This includes values less than zero.[id number]: Diagnosing or excluding tuberculosis disease, and assessing [...] Control TB Spot Count >20 Specimen Blood * CHEST 2 VIEWS (12/07/2016 11:27 AM) Impressions [...] Results - MonDec 07, 2016 2:56 PM [employer] CHEST 2 VIEWS Clinical history: Erythema nodosum [...] Sam Barragan M.D. on 12/07/2016 1:23 PM. * SURGICAL PATHOLOGY (12/07/2016 11:18 AM) Component Value Range PATHOLOGY REPORT [facility] [email or web address] Christine Suarez MD, PhD, Director of Anatomic Pathology Department of Pathology and Laboratory Medicine [address] [place] [id number] Surgical Pathology Office: [phone] SURGICAL PATHOLOGY REPORT NAME: COLBY MITCHELL SURG PATH #: [id number] MR #: [id number] SPECIMEN CLASS: SR BILLING #: [id number] ALT ID #: LOCATION: DERM DATE OF PROCEDURE: 12/07/2016 AGE: 31 SEX: F DATE RECEIVED: 12/07/2016 : 1985 TIME RECEIVED: :18 PHYSICIAN: MARCO ANTONIO VERNON MD DATE OF [...] punch, bisected, all in A1. (jdn) jdn2/12/07/2016 * SKIN BIOPSY/EXCISION OF SKIN LESION (12/07/2016 10:54 AM)
--- OUTSIDE RECORDS SUMMARY | 2017-03-05 04:27 | XMS REPORT ---
Author Author ROMELIA COSTELLO [facility] Address [address] [place] [address] Care Team Providers Care Head Control Clerk Name Role Phone ROMELIA COSTELLO Unavailable PROBLEMS Type Condition ICD9-CM Code KIL12-IL Code Onset Dates Condition Status SNOMED Code Problem Vitamin D deficiency E55.9 Active 93949227 Problem Bruising, spontaneous R23.3 Active 157056261 Problem Bruising tendency D69.9 Active 65486891 Assessment Peripheral polyneuropathy G62.9 Jul, Active 36875616 Problem Right foot pain M79.671 Active 95383332 Problem Paresthesia of bilateral legs R20.2 Active 247472925 Problem Elevated blood pressure I10 Active 04426707 Problem Right leg paresthesias R20.2 Active 441997722 Problem Right leg swelling M79.89 Active 895770091 Problem Erythema nodosum L52 Active 69706388 Problem Long-term use of high-risk medication Z79.899 Active 116567539 ALLERGIES Substance Reaction Event Type Date Status Remeron Unknown Drug Allergy Jul, Active Penicillin V Potassium Unknown Drug Allergy Jul, Active Erythromycin Base Unknown Drug Allergy Jul, Active BusPIRone HCl Unknown Drug Allergy Jul, Active SOCIAL HISTORY No smoking Hx information available PLAN OF CARE VITAL SIGNS Height 69 in 2016-08-15 Weight 249.2 lbs 2016-08-15 Heart Rate 64 bpm 2016-08-15 Respiratory Rate 18 2016-08-15 BMI 36.80 kg/m2 2016-08-15 Blood pressure systolic 140 mmHg 2016-08-15 Blood pressure diastolic 89 mmHg 2016-08-15 MEDICATIONS Medication Instructions Dosage Frequency Start Date End Date Duration Status Tegretol 200 MG Orally Twice a day 1 tablet 12h Active [place] Carbonate ER 450 MG Orally at bedtime 2 tablet Active Minipress 5 MG Orally Once a day 1 capsule at bedtime 24h Active Xanax 2 MG Orally Three times a day 1 tablet 8h Active Restoril 30 MG Orally Once a day 5 capsule at bedtime as needed 24h Active Vyvanse 30 MG Orally Once a day 1 capsule in the morning 24h Active Bactrim DS 800-160 MG Orally Twice a day 1 tablet 12h Active Amitriptyline HCl 25 MG Orally Once a day at hs 1 tablet Jul, 30 day(s) Active Ibuprofen 800 MG Orally Three times a day 1 tablet 8h Jul,Aug 30 day(s) Active RESULTS No Results PROCEDURES Procedure Date Ordered Related Diagnosis Body Site Office Visit, Est Pt., Level 4 Aug 15, 2016 IMMUNIZATIONS No Known Immunizations
--- OUTSIDE RECORDS SUMMARY | 2017-03-05 04:27 | XMS REPORT | Continuity of Care Document ---
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 FAIZA MOODY TOOL GRINDER SET UP OPERATOR GEAR Ot V58.69 03/31/2015 FAIZA MOODY TOOL GRINDER SET UP OPERATOR GEAR Ot V58.83 03/31/2015 DARIUS BRENNER TOOL GRINDER SET UP OPERATOR GEAR Ot 620.2 03/31/2015 DARIUS BRENNER TOOL GRINDER SET UP OPERATOR GEAR Ot 789.04 03/31/2015 DARIUS BRENNER TOOL GRINDER SET UP OPERATOR GEAR Ot V45.77 03/31/2015 BHARATI GUEVARA Ot 620.2 03/31/2015 BHARATI GUEVARA Ot 789.09 03/31/2015 MARIANA LOVELACE DO Ot 625.9 03/31/2015 MARIANA LOVELACE DO Ot V72.84 03/31/2015 MARIANA LOVELACE DO Ot V74.8 03/31/2015 EVERARDO CLEMENTE, MARIO Rendon Ot 998.12 03/31/2015 MADL, BUBBA L TOOL GRINDER SET UP OPERATOR GEAR Ot 239.89 03/31/2015 MADL, BUBBA L TOOL GRINDER SET UP OPERATOR GEAR Ot 786.2 03/31/2015 MADL, BUBBA L TOOL GRINDER SET UP OPERATOR GEAR Ot 239.89 03/31/2015 MADL, BUBBA L TOOL GRINDER SET UP OPERATOR GEAR Ot 305.1 03/31/2015 MADL, BUBBA L TOOL GRINDER SET UP OPERATOR GEAR Ot 478.19 03/31/2015 MADL, BUBBA L TOOL GRINDER SET UP OPERATOR GEAR Ot 784.0 03/31/2015 MADL, BUBBA L TOOL GRINDER SET UP OPERATOR GEAR Ot 785.6 03/31/2015 MADL, BUBBA L TOOL GRINDER SET UP OPERATOR GEAR Ot 786.2 03/31/2015 STEPHENIE CLEMENTE, JOSE RAFAEL Newsome Ot 478.19 03/31/2015 STEPHENIE CLEMENTE, JOSE RAFAEL Newsome Ot 784.0 03/31/2015 Ot 620.2 03/31/2015 Ot 621.30 03/31/2015 Ot 626.2 03/31/2015 Ot V72.63 03/31/2015 Ot V72.81 03/31/2015 Ot V74.8 03/31/2015 Ot 626.2 03/31/2015 Ot 791.9 03/31/2015 Ot V72.63 03/31/2015 Ot V74.8 03/31/2015 Ot 574.20 03/31/2015 Ot V72.83 03/31/2015 Ot V74.8 03/31/2015 VITT, VERA M TOOL GRINDER SET UP OPERATOR GEAR Ot 311 03/31/2015 VITT, VERA M TOOL GRINDER SET UP OPERATOR GEAR Ot V58.69 03/31/2015 VITT, VERA M TOOL GRINDER SET UP OPERATOR GEAR Ot V58.83 03/31/2015 QUICKDARIUS TOOL GRINDER SET UP OPERATOR GEAR Ot 620.2 03/31/2015 QUICKDARIUS TOOL GRINDER SET UP OPERATOR GEAR Ot 789.04 03/31/2015 QUICKDARIUS TOOL GRINDER SET UP OPERATOR GEAR Ot V45.77 03/31/2015 BHARATI GUEVARA Ot 620.2 03/31/2015 BHARATI GUEVARA Ot 789.09 03/31/2015 MARIANA LOVELACE DO Ot 625.9 03/31/2015 MARIANA LOVELACE DO C Ot V72.84 03/31/2015 MARIANA LOVELACE DO C Ot V74.8 03/31/2015 EVERARDO CLEMENTE, MARIO Rendon Ot 998.12 03/31/2015 MADL, BUBBA L TOOL GRINDER SET UP OPERATOR GEAR Ot 239.89 03/31/2015 MADL, BUBBA L TOOL GRINDER SET UP OPERATOR GEAR Ot 786.2 03/31/2015 MADL, BUBBA L TOOL GRINDER SET UP OPERATOR GEAR Ot 239.89 03/31/2015 MADL, BUBBA L TOOL GRINDER SET UP OPERATOR GEAR Ot 305.1 03/31/2015 MADL, BUBBA L TOOL GRINDER SET UP OPERATOR GEAR Ot 478.19 03/31/2015 MADL, BUBBA L TOOL GRINDER SET UP OPERATOR GEAR Ot 784.0 03/31/2015 MADL, BUBBA L TOOL GRINDER SET UP OPERATOR GEAR Ot 785.6 03/31/2015 MADL, BUBBA L TOOL GRINDER SET UP OPERATOR GEAR Ot 786.2 03/31/2015 STEPHENIE CLEMENTE, JOSE RAFAEL Newsome Ot 478.19 03/31/2015 STEPHENIE CLEMENTE, JOSE RAFAEL Newsome Ot 784.0 04/30/2015 VITFAIZA Rendon TOOL GRINDER SET UP OPERATOR GEAR Ot 285.9 04/30/2015 VITFAIZA Rendon TOOL GRINDER SET UP OPERATOR GEAR Ot 311 04/30/2015 FAIZA MOODYP Ot V58.69 05/11/2015 GERSON JAEGER STRIKE OFF MACHINE OPERATOR Ot 131.09 UROGENITAL TRICHOMON NEC 05/11/2015 GERSON JAEGER STRIKE OFF MACHINE OPERATOR Ot 789.04 ABDOMINAL PAIN, LEFT LOWER QUADRANT 05/11/2015 Ot 620.2 05/11/2015 Ot 621.30 05/11/2015 Ot 626.2 05/11/2015 Ot V72.63 05/11/2015 Ot V72.81 05/11/2015 Ot V74.8 05/11/2015 Ot 626.2 05/11/2015 Ot 791.9 05/11/2015 Ot V72.63 05/11/2015 Ot V74.8 05/11/2015 Ot 574.20 05/11/2015 Ot V72.83 05/11/2015 Ot V74.8 05/11/2015 FAIZA MOODY TOOL GRINDER SET UP OPERATOR GEAR Ot 311 05/11/2015 VITFAIZA Rendon TOOL GRINDER SET UP OPERATOR GEAR Ot V58.69 05/11/2015 VITJulieta FAIZA Mckinley TOOL GRINDER SET UP OPERATOR GEAR Ot V58.83 05/11/2015 DARIUS BRENNER TOOL GRINDER SET UP OPERATOR GEAR Ot 620.2 05/11/2015 QUICKDARIUS TOOL GRINDER SET UP OPERATOR GEAR Ot 789.04 05/11/2015 QUICKDARIUS TOOL GRINDER SET UP OPERATOR GEAR Ot V45.77 05/11/2015 PRISCILLA FONG BHARATI L Ot 620.2 05/11/2015 BHARATI GUEVARA Ot 789.09 05/11/2015 LOVELACE DO MARIANA C Ot 625.9 05/11/2015 LOVELACE DO, MARIANA C Ot V72.84 05/11/2015 LOVELACE DO, MARIANA C Ot V74.8 05/11/2015 EVERARDO CLEMENTE, MARIO Rendon Ot 998.12 05/11/2015 MADL, BUBBA L TOOL GRINDER SET UP OPERATOR GEAR Ot 239.89 05/11/2015 MADL, BUBBA L TOOL GRINDER SET UP OPERATOR GEAR Ot 786.2 05/11/2015 MADL, BUBBA L TOOL GRINDER SET UP OPERATOR GEAR Ot 239.89 05/11/2015 MADL, BUBBA L TOOL GRINDER SET UP OPERATOR GEAR Ot 305.1 05/11/2015 MADL, BUBBA L TOOL GRINDER SET UP OPERATOR GEAR Ot 478.19 05/11/2015 MADL, BUBBA L TOOL GRINDER SET UP OPERATOR GEAR Ot 784.0 05/11/2015 MADL, BUBBA L TOOL GRINDER SET UP OPERATOR GEAR Ot 785.6 05/11/2015 MADL, BUBBA L TOOL GRINDER SET UP OPERATOR GEAR Ot 786.2 05/11/2015 STEPHENIE CLEMENTE, JOSE RAFAEL Newsome Ot 478.19 05/11/2015 JOSE RAFAEL CASIANO MD Ot 784.0 05/11/2015 VITT TRAVISFe M TOOL GRINDER SET UP OPERATOR GEAR Ot 285.9 05/11/2015 VITT TRAVISFe Sen TOOL GRINDER SET UP OPERATOR GEAR Ot 311 05/11/2015 VITT TRAVISFe Sen TOOL GRINDER SET UP OPERATOR GEAR Ot V58.69 07/05/2015 GERSON JAEGER APRN Ot 692.6 DERMATITIS DUE TO PLANT 07/05/2015 GERSON JAEGER APRN Ot 782.1 NONSPECIF SKIN ERUPT NEC 01/14/2016 Ot 574.20 01/14/2016 Ot V72.83 01/14/2016 Ot V74.8 01/14/2016 VITFAIZA Rendon TOOL GRINDER SET UP OPERATOR GEAR Ot 311 01/14/2016 VITT, TRAVISFe M TOOL GRINDER SET UP OPERATOR GEAR Ot V58.69 01/14/2016 VITT, TRAVISA M TOOL GRINDER SET UP OPERATOR GEAR Ot V58.83 01/14/2016 DARIUS BRENNER TOOL GRINDER SET UP OPERATOR GEAR Ot 620.2 01/14/2016 QUICKDARIUS TOOL GRINDER SET UP OPERATOR GEAR Ot 789.04 01/14/2016 QUICKDARIUS TOOL GRINDER SET UP OPERATOR GEAR Ot V45.77 01/14/2016 BHARATI GUEVARA Ot 620.2 01/14/2016 BHARATI GUEVARA L Ot 789.09 01/14/2016 LOVELACE DO, MARIANA C Ot 625.9 01/14/2016 LOVELACE DO, MARIANA C Ot V72.84 01/14/2016 LOVELACE DO, MARIANA C Ot V74.8 01/14/2016 EVERARDO CLEMENTE, MARIO Rendon Ot 998.12 01/14/2016 MADL, BUBBA L TOOL GRINDER SET UP OPERATOR GEAR Ot 239.89 01/14/2016 MADL, BUBBA L TOOL GRINDER SET UP OPERATOR GEAR Ot 786.2 01/14/2016 MADL, BUBBA L TOOL GRINDER SET UP OPERATOR GEAR Ot 239.89 01/14/2016 MADL, BUBBA L TOOL GRINDER SET UP OPERATOR GEAR Ot 305.1 01/14/2016 MADL, BUBBA L TOOL GRINDER SET UP OPERATOR GEAR Ot 478.19 01/14/2016 MADL, BUBBA L TOOL GRINDER SET UP OPERATOR GEAR Ot 784.0 01/14/2016 MADL, BUBBA L TOOL GRINDER SET UP OPERATOR GEAR Ot 785.6 01/14/2016 MADL, BUBBA L TOOL GRINDER SET UP OPERATOR GEAR Ot 786.2 01/14/2016 STEPHENIE CLEMENTE, JOSE RAFAEL Newsome Ot 478.19 01/14/2016 STEPHENIE CLEMENTE, JOSE RAFAEL Newsome Ot 784.0 01/14/2016 VITT TRAVISeF M TOOL GRINDER SET UP OPERATOR GEAR Ot 285.9 01/14/2016 VITT, TRAVISA M TOOL GRINDER SET UP OPERATOR GEAR Ot 311 01/14/2016 VITT VERA M TOOL GRINDER SET UP OPERATOR GEAR Ot V58.69 07/02/2016 Ot 574.20 CHOLELITHIASIS NOS 07/02/2016 Ot V72.83 EXAM PRE-OPERATIVE NEC 07/02/2016 Ot V74.8 SCREEN-BACTERIAL DIS NEC 07/02/2016 VITTFAIZA M TOOL GRINDER SET UP OPERATOR GEAR Ot 311 DEPRESSIVE DISORDER NEC 07/02/2016 VITT TRAVISFe M TOOL GRINDER SET UP OPERATOR GEAR Ot V58.[address] [facility] MED,LT,CURRENT USE 07/02/2016 VITFAIZA Rendon TOOL GRINDER SET UP OPERATOR GEAR Ot V58.83 ENCOUNTER FOR THERAPEUTIC DRUG MONITORIN 07/02/2016 DARIUS BRENNER TOOL GRINDER SET UP OPERATOR GEAR Ot 620.2 OVARIAN CYST NEC/NOS 07/02/2016 DARIUS BRENNER TOOL GRINDER SET UP OPERATOR GEAR Ot 789.04 ABDOMINAL PAIN, LEFT LOWER QUADRANT 07/02/2016 DARIUS BRENNER TOOL GRINDER SET UP OPERATOR GEAR Ot V45.77 ACQRD ABSENCE OF GENITAL ORGANS 07/02/2016 BHARATI GUEVARA Ot 620.2 OVARIAN CYST NEC/NOS 07/02/2016 BHARATI GUEVARA Ot 789.09 ABDOMINAL PAIN, OTHER SPECIFIED SITE 07/02/2016 LOVELACESHONA Cortez DOA C Ot 625.9 FEM GENITAL SYMPTOMS NOS 07/02/2016 MARIANA LOVELACE DO C Ot V72.84 EXAM PRE-OPERATIVE NOS 07/02/2016 RADU DIGGS MARIANA C Ot V74.8 SCREEN-BACTERIAL DIS NEC 07/02/2016 EVERARDO CLEMENTE, MARIO Rendon Ot 998.12 HEMATOMA COMPLIC A PROC 07/02/2016 MADL, BUBBA L TOOL GRINDER SET UP OPERATOR GEAR Ot 239.89 NEOPLASMS OF UNSPECIFIED NATURE, OTHER S 07/02/2016 MADL, BUBBA L TOOL GRINDER SET UP OPERATOR GEAR Ot 786.2 COUGH 07/02/2016 MADL, BUBBA L TOOL GRINDER SET UP OPERATOR GEAR Ot 239.89 NEOPLASMS OF UNSPECIFIED NATURE, OTHER S 07/02/2016 MADL, BUBBA L TOOL GRINDER SET UP OPERATOR GEAR Ot 305.1 TOBACCO USE DISORDER 07/02/2016 MADL, BUBBA L TOOL GRINDER SET UP OPERATOR GEAR Ot 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 07/02/2016 MADL, BUBBA L TOOL GRINDER SET UP OPERATOR GEAR Ot 784.0 HEADACHE 07/02/2016 MADL, BUBBA L TOOL GRINDER SET UP OPERATOR GEAR Ot 785.6 ENLARGEMENT LYMPH NODES 07/02/2016 MADL, BUBBA L TOOL GRINDER SET UP OPERATOR GEAR Ot 786.2 COUGH 07/02/2016 STEPHENIE CLEMENTE, JOSE RAFAEL Newsome Ot 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 07/02/2016 STEPHENIE CLEMENTE, JOSE RAFAEL Newsome Ot 784.0 HEADACHE 07/02/2016 VITFAIZA Rendon TOOL GRINDER SET UP OPERATOR GEAR Ot 285.9 ANEMIA NOS 07/02/2016 WINIFREDTFAIZA TOOL GRINDER SET UP OPERATOR GEAR Ot 311 DEPRESSIVE DISORDER NEC 07/02/2016 FAIZA MOODY Ot V58.69 OTH MED,LT,CURRENT USE 07/02/2016 BHARATI GUEVARA Ot S90.921A UNSPECIFIED SUPERFICIAL INJURY OF RIGHT 07/02/2016 BHARATI GUEVARA Ot S93.401A SPRAIN OF UNSPECIFIED LIGAMENT OF RIGHT 07/02/2016 BHARATI GUEVARA Ot S93.601A UNSPECIFIED SPRAIN OF RIGHT FOOT, INITIA 07/02/2016 BHARATI GUEVARA Ot W10.9XXA FALL (ON) (FROM) UNSPECIFIED STAIRS AND 07/02/2016 BHARATI GUEVARA Ot Y92.[address] IN [facility] NON-INSTITUT ( PRIVATE 07/02/2016 BHARATI GUEVARA Ot Y99.8 OTHER EXTERNAL CAUSE STATUS 07/02/2016 Ot 574.20 CHOLELITHIASIS NOS 07/02/2016 Ot V72.83 EXAM PRE-OPERATIVE NEC 07/02/2016 Ot V74.8 SCREEN-BACTERIAL DIS NEC 07/02/2016 WINIFREDTFAIZA TOOL GRINDER SET UP OPERATOR GEAR Ot 311 DEPRESSIVE DISORDER NEC 07/02/2016 FAIZA MOODY TOOL GRINDER SET UP OPERATOR GEAR Ot V58.69 OTH MED,LT,CURRENT USE 07/02/2016 VITTFAIZA TOOL GRINDER SET UP OPERATOR GEAR Ot V58.83 ENCOUNTER FOR THERAPEUTIC DRUG MONITORIN 07/02/2016 DARIUS BRENNER TOOL GRINDER SET UP OPERATOR GEAR Ot 620.2 OVARIAN CYST NEC/NOS 07/02/2016 DARIUS BRENNER TOOL GRINDER SET UP OPERATOR GEAR Ot 789.04 ABDOMINAL PAIN, LEFT LOWER QUADRANT 07/02/2016 DARIUS BRENNER TOOL GRINDER SET UP OPERATOR GEAR Ot V45.77 ACQRD ABSENCE OF GENITAL ORGANS 07/02/2016 BHARATI GUEVARA Ot 620.2 OVARIAN CYST NEC/NOS 07/02/2016 BHARATI GUEVARA Ot 789.09 ABDOMINAL PAIN, OTHER SPECIFIED SITE 07/02/2016 MARIANA LOVELACE DO Ot 625.9 FEM GENITAL SYMPTOMS NOS 07/02/2016 MARIANA LOVELACE DO Ot V72.84 EXAM PRE-OPERATIVE NOS 07/02/2016 MARIANA LOVELACE DO Ot V74.8 SCREEN-BACTERIAL DIS NEC 07/02/2016 EVERARDO CLEMENTE, MARIO Rendon Ot 998.12 HEMATOMA COMPLIC A PROC 07/02/2016 BUBBA ZARATE TOOL GRINDER SET UP OPERATOR GEAR Ot 239.89 NEOPLASMS OF UNSPECIFIED NATURE, OTHER S 07/02/2016 MADLBUBBA TOOL GRINDER SET UP OPERATOR GEAR Ot 786.2 COUGH 07/02/2016 MADLBUBBA TOOL GRINDER SET UP OPERATOR GEAR Ot 239.89 NEOPLASMS OF UNSPECIFIED NATURE, OTHER S 07/02/2016 MADLBUBBA TOOL GRINDER SET UP OPERATOR GEAR Ot 305.1 TOBACCO USE DISORDER 07/02/2016 MADLUMESHA L TOOL GRINDER SET UP OPERATOR GEAR Ot 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 07/02/2016 MADLBUBBA L TOOL GRINDER SET UP OPERATOR GEAR Ot 784.0 HEADACHE 07/02/2016 MADLBUBBA L TOOL GRINDER SET UP OPERATOR GEAR Ot 785.6 ENLARGEMENT LYMPH NODES 07/02/2016 MADLUMESHA L TOOL GRINDER SET UP OPERATOR GEAR Ot 786.2 COUGH 07/02/2016 STEPHENIE CLEMENTE, JOSE RAFAEL Newsome Ot 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 07/02/2016 STEPHENIE CLEMENTE, JOSE RAFAEL Newsome Ot 784.0 HEADACHE 07/02/2016 FAIZA MOODY TOOL GRINDER SET UP OPERATOR GEAR Ot 285.9 ANEMIA NOS 07/02/2016 VITFAIZA Rendon TOOL GRINDER SET UP OPERATOR GEAR Ot 311 DEPRESSIVE DISORDER NEC 07/02/2016 FAIZA MOODYP Ot V58.69 OTH MED,LT,CURRENT USE 07/05/2016 BHARATI GUEVARA Ot S90.921A UNSPECIFIED SUPERFICIAL INJURY OF RIGHT 07/05/2016 BHARATI GUEVARA Ot S93.401A SPRAIN OF UNSPECIFIED LIGAMENT OF RIGHT 07/05/2016 BHARATI GUEVARA Ot S93.601A UNSPECIFIED SPRAIN OF RIGHT FOOT, INITIA 07/05/2016 BHARATI GUEVARA Ot W10.9XXA FALL (ON) (FROM) UNSPECIFIED STAIRS AND 07/05/2016 BHARATI GUEVARA Ot Y92.[address] IN [facility] NON-INSTITUT ( PRIVATE 07/05/2016 BHARATI GUEVARA Ot Y99.8 OTHER EXTERNAL CAUSE STATUS 07/18/2016 FAIZA MOODY Ot F32.9 MAJOR DEPRESSIVE DISORDER, SINGLE EPISOD 07/18/2016 FAIZA MOODY Ot Z79.899 OTHER BRAILLE TYPIST (CURRENT) DRUG THERAPY 07/26/2016 Ot 574.20 CHOLELITHIASIS NOS 07/26/2016 Ot V72.83 EXAM PRE-OPERATIVE NEC 07/26/2016 Ot V74.8 SCREEN-BACTERIAL DIS NEC 07/26/2016 VITTFAIZA TOOL GRINDER SET UP OPERATOR GEAR Ot 311 DEPRESSIVE DISORDER NEC 07/26/2016 FAIZA MOODY TOOL GRINDER SET UP OPERATOR GEAR Ot V58.69 OTH MED,LT,CURRENT USE 07/26/2016 VITFAIZA Rendon TOOL GRINDER SET UP OPERATOR GEAR Ot V58.83 ENCOUNTER FOR THERAPEUTIC DRUG MONITORIN 07/26/2016 JORDINDARIUS TOOL GRINDER SET UP OPERATOR GEAR Ot 620.2 OVARIAN CYST NEC/NOS 07/26/2016 DARIUS BRENNER TOOL GRINDER SET UP OPERATOR GEAR Ot 789.04 ABDOMINAL PAIN, LEFT LOWER QUADRANT 07/26/2016 DARIUS BRENNER TOOL GRINDER SET UP OPERATOR GEAR Ot V45.77 ACQRD ABSENCE OF GENITAL ORGANS 07/26/2016 BHARATI GUEVARA Ot 620.2 OVARIAN CYST NEC/NOS 07/26/2016 BHARATI GUEVARA Ot 789.09 ABDOMINAL PAIN, OTHER SPECIFIED SITE 07/26/2016 MARIANA LOVELACE DO Ot 625.9 FEM GENITAL SYMPTOMS NOS 07/26/2016 MARIANA LOVELACE DO Ot V72.84 EXAM PRE-OPERATIVE NOS 07/26/2016 MARIANA LOVELACE DO Ot V74.8 SCREEN-BACTERIAL DIS NEC 07/26/2016 EVERARDO CLEMENTE, MARIO Rendon Ot 998.12 HEMATOMA COMPLIC A PROC 07/26/2016 UMESH ZARATEA L TOOL GRINDER SET UP OPERATOR GEAR Ot 239.89 NEOPLASMS OF UNSPECIFIED NATURE, OTHER S 07/26/2016 MADLCLARENCEBUBBA L TOOL GRINDER SET UP OPERATOR GEAR Ot 786.2 COUGH 07/26/2016 MADL, BUBBA L TOOL GRINDER SET UP OPERATOR GEAR Ot 239.89 NEOPLASMS OF UNSPECIFIED NATURE, OTHER S 07/26/2016 MADL, BUBBA L TOOL GRINDER SET UP OPERATOR GEAR Ot 305.1 TOBACCO USE DISORDER 07/26/2016 MADL BUBBA L TOOL GRINDER SET UP OPERATOR GEAR Ot 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 07/26/2016 MADL BUBBA L TOOL GRINDER SET UP OPERATOR GEAR Ot 784.0 HEADACHE 07/26/2016 MADL, BUBBA L TOOL GRINDER SET UP OPERATOR GEAR Ot 785.6 ENLARGEMENT LYMPH NODES 07/26/2016 ELLIOT BUBBA L TOOL GRINDER SET UP OPERATOR GEAR Ot 786.2 COUGH 07/26/2016 STEPHENIE CLEMENTE, JOSE RAFAEL Newsome Ot 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 07/26/2016 STEPHENIE CLEMENTE, JOSE RAFAEL Newsome Ot 784.0 HEADACHE 07/26/2016 VITTFAIZA TOOL GRINDER SET UP OPERATOR GEAR Ot 285.9 ANEMIA NOS 07/26/2016 VITT, VERA M TOOL GRINDER SET UP OPERATOR GEAR Ot 311 DEPRESSIVE DISORDER NEC 07/26/2016 VITT TRAVISFe M TOOL GRINDER SET UP OPERATOR GEAR Ot V58.69 OTH MED,LT,CURRENT USE 07/26/2016 VITTFAIZA TOOL GRINDER SET UP OPERATOR GEAR Ot F32.9 MAJOR DEPRESSIVE DISORDER, SINGLE EPISOD 07/26/2016 VITT, TRAVISA Mckinley TOOL GRINDER SET UP OPERATOR GEAR Ot Z79.899 OTHER BRAILLE TYPIST (CURRENT) DRUG THERAPY 07/26/2016 BLUE LOVE DO Ot F17.210 NICOTINE DEPENDENCE, CIGARETTES, UNCOMPL 07/26/2016 BLUE LOVE DO Ot G89.29 OTHER CHRONIC PAIN 07/26/2016 BLUE LOVE DO Ot M79.662 PAIN IN LEFT LOWER LEG 07/26/2016 BLUE LOVE DO Ot R22.42 LOCALIZED SWELLING, MASS AND LUMP, LEFT 07/26/2016 BLUE LOVE DO Ot Z79.899 OTHER NURSING HOME (CURRENT) DRUG THERAPY 08/04/2016 VITT TRAVISFe Sen TOOL GRINDER SET UP OPERATOR GEAR Ot F32.9 MAJOR DEPRESSIVE DISORDER, SINGLE EPISOD 08/04/2016 VITT, TRAVISA M TOOL GRINDER SET UP OPERATOR GEAR Ot Z79.899 OTHER NURSING HOME (CURRENT) DRUG THERAPY 01/18/2017 Ot 574.20 CHOLELITHIASIS NOS 01/18/2017 Ot V72.83 EXAM PRE-OPERATIVE NEC 01/18/2017 Ot V74.8 SCREEN-BACTERIAL DIS NEC 01/18/2017 VITTTRAVISA M TOOL GRINDER SET UP OPERATOR GEAR Ot 311 DEPRESSIVE DISORDER NEC 01/18/2017 VITT TRAVISA Mckinley TOOL GRINDER SET UP OPERATOR GEAR Ot V58.69 OTH MED,LT,CURRENT USE 01/18/2017 VITTTRAVISA M TOOL GRINDER SET UP OPERATOR GEAR Ot V58.83 ENCOUNTER FOR THERAPEUTIC DRUG MONITORIN 01/18/2017 DARIUS BRENNER TOOL GRINDER SET UP OPERATOR GEAR Ot 620.2 OVARIAN CYST NEC/NOS 01/18/2017 DARIUS BRENNER TOOL GRINDER SET UP OPERATOR GEAR Ot 789.04 ABDOMINAL PAIN, LEFT LOWER QUADRANT 01/18/2017 DARIUS BRENNER TOOL GRINDER SET UP OPERATOR GEAR Ot V45.77 ACQRD ABSENCE OF GENITAL ORGANS 01/18/2017 BHARATI GUEVARA Ot 620.2 OVARIAN CYST NEC/NOS 01/18/2017 BHARATI GUEVARA Ot 789.09 ABDOMINAL PAIN, OTHER SPECIFIED SITE 01/18/2017 MARIANA LOVELACE DO Ot 625.9 FEM GENITAL SYMPTOMS NOS 01/18/2017 MARIANA LOVELACE DO Ot V72.84 EXAM PRE-OPERATIVE NOS 01/18/2017 MARIANA LOVELACE DO Ot V74.8 SCREEN-BACTERIAL DIS NEC 01/18/2017 EVERARDO CLEMENTE, MARIO Rendon Ot 998.12 HEMATOMA COMPLIC A PROC 01/18/2017 MADL, BUBBA L TOOL GRINDER SET UP OPERATOR GEAR Ot 239.89 NEOPLASMS OF UNSPECIFIED NATURE, OTHER S 01/18/2017 MADL, BUBBA L TOOL GRINDER SET UP OPERATOR GEAR Ot 786.2 COUGH 01/18/2017 MADL, BUBBA L TOOL GRINDER SET UP OPERATOR GEAR Ot 239.89 NEOPLASMS OF UNSPECIFIED NATURE, OTHER S 01/18/2017 MADL, BUBBA L TOOL GRINDER SET UP OPERATOR GEAR Ot 305.1 TOBACCO USE DISORDER 01/18/2017 MADL, BUBBA L TOOL GRINDER SET UP OPERATOR GEAR Ot 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 01/18/2017 MADL, BUBBA L TOOL GRINDER SET UP OPERATOR GEAR Ot 784.0 HEADACHE 01/18/2017 MADL, BUBBA L TOOL GRINDER SET UP OPERATOR GEAR Ot 785.6 ENLARGEMENT LYMPH NODES 01/18/2017 MADL, BUBBA L TOOL GRINDER SET UP OPERATOR GEAR Ot 786.2 COUGH 01/18/2017 JOSE RAFAEL CASIANO MD Ot 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 01/18/2017 JOSE RAFAEL CASIANO MD Ot 784.0 HEADACHE 01/18/2017 VITT VERA M TOOL GRINDER SET UP OPERATOR GEAR Ot 285.9 ANEMIA NOS 01/18/2017 VITT, VERA M TOOL GRINDER SET UP OPERATOR GEAR Ot 311 DEPRESSIVE DISORDER NEC 01/18/2017 VITT VERA M TOOL GRINDER SET UP OPERATOR GEAR Ot V58.69 OT MED,LT,CURRENT USE 01/18/2017 VITT VERA M TOOL GRINDER SET UP OPERATOR GEAR Ot F32.9 MAJOR DEPRESSIVE DISORDER, SINGLE EPISOD 01/18/2017 VITT VERA M TOOL GRINDER SET UP OPERATOR GEAR Ot Z79.899 OTHER NURSING HOME (CURRENT) DRUG THERAPY 01/18/2017 Ot 574.20 CHOLELITHIASIS NOS 01/18/2017 Ot V72.83 EXAM PRE-OPERATIVE NEC 01/18/2017 Ot V74.8 SCREEN-BACTERIAL DIS NEC 01/18/2017 VITTFAIZA TOOL GRINDER SET UP OPERATOR GEAR Ot 311 DEPRESSIVE DISORDER NEC 01/18/2017 VITFAIZA Rendon TOOL GRINDER SET UP OPERATOR GEAR Ot V58.69 OTH MED,LT,CURRENT USE 01/18/2017 VITTFAIZA TOOL GRINDER SET UP OPERATOR GEAR Ot V58.83 ENCOUNTER FOR THERAPEUTIC DRUG MONITORIN 01/18/2017 JORDINDARIUS TOOL GRINDER SET UP OPERATOR GEAR Ot 620.2 OVARIAN CYST NEC/NOS 01/18/2017 DARIUS BRENNER TOOL GRINDER SET UP OPERATOR GEAR Ot 789.04 ABDOMINAL PAIN, LEFT LOWER QUADRANT 01/18/2017 DARIUS BRENNER TOOL GRINDER SET UP OPERATOR GEAR Ot V45.77 ACQRD ABSENCE OF GENITAL ORGANS 01/18/2017 BHARATI GUEVARA Ot 620.2 OVARIAN CYST NEC/NOS 01/18/2017 BHARATI GUEVARA Ot 789.09 ABDOMINAL PAIN, OTHER SPECIFIED SITE 01/18/2017 MARIANA LOVELACE DO Ot 625.9 FEM GENITAL SYMPTOMS NOS 01/18/2017 MARIANA LOVELACE DO Ot V72.84 EXAM PRE-OPERATIVE NOS 01/18/2017 MARIANA LOVELACE DO C Ot V74.8 SCREEN-BACTERIAL DIS NEC 01/18/2017 EVERARDO CLEMENTE, MARIO Rendon Ot 998.12 HEMATOMA COMPLIC A PROC 01/18/2017 MADL, BUBBA L TOOL GRINDER SET UP OPERATOR GEAR Ot 239.89 NEOPLASMS OF UNSPECIFIED NATURE, OTHER S 01/18/2017 MADL, BUBBA L TOOL GRINDER SET UP OPERATOR GEAR Ot 786.2 COUGH 01/18/2017 MADL, BUBBA L TOOL GRINDER SET UP OPERATOR GEAR Ot 239.89 NEOPLASMS OF UNSPECIFIED NATURE, OTHER S 01/18/2017 MADL, BUBBA L TOOL GRINDER SET UP OPERATOR GEAR Ot 305.1 TOBACCO USE DISORDER 01/18/2017 MADL, BUBBA L TOOL GRINDER SET UP OPERATOR GEAR Ot 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 01/18/2017 MADL, BUBBA L TOOL GRINDER SET UP OPERATOR GEAR Ot 784.0 HEADACHE 01/18/2017 MADL, BUBBA L TOOL GRINDER SET UP OPERATOR GEAR Ot 785.6 ENLARGEMENT LYMPH NODES 01/18/2017 MADFlynn BUBBA L TOOL GRINDER SET UP OPERATOR GEAR Ot 786.2 COUGH 01/18/2017 STEPHENIE CLEMENTE, JOSE RAFAEL [place] Ot 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 01/18/2017 STEPHENIE CLEMENTE, JOSE RAFAEL P Ot 784.0 HEADACHE 01/18/2017 VITT, TRAVISFe Sen TOOL GRINDER SET UP OPERATOR GEAR Ot 285.9 ANEMIA NOS 01/18/2017 VITT, VERA M TOOL GRINDER SET UP OPERATOR GEAR Ot 311 DEPRESSIVE DISORDER NEC 01/18/2017 VITT TRAVISA M TOOL GRINDER SET UP OPERATOR GEAR Ot V58.69 OTH MED,LT,CURRENT USE 01/18/2017 VITT VERFe Sen TOOL GRINDER SET UP OPERATOR GEAR Ot F32.9 MAJOR DEPRESSIVE DISORDER, SINGLE EPISOD 01/18/2017 VITT, TRAVISFe Sen TOOL GRINDER SET UP OPERATOR GEAR Ot Z79.899 OTHER BRAILLE TYPIST (CURRENT) DRUG THERAPY 01/19/2017 GERSON JAEGER STRIKE OFF MACHINE OPERATOR Ot F41.9 ANXIETY DISORDER, UNSPECIFIED 01/19/2017 GERSON JAEGER STRIKE OFF MACHINE OPERATOR Ot J40 BRONCHITIS, NOT SPECIFIED ACUTE OR CH 01/19/2017 GERSON JAEGER STRIKE OFF MACHINE OPERATOR Ot R06.00 DYSPNEA, UNSPECIFIED 01/19/2017 GERSON JAEGER APRN Ot Z79.899 OTHER NURSING HOME (CURRENT) DRUG THERAPY 02/15/2017 BHARATI GUEVARA L Ot I10 ESSENTIAL (PRIMARY) HYPERTENSION 02/15/2017 BHARATI GUEVARA Ot N39.0 URINARY TRACT INFECTION, SITE NOT SPECIF 02/15/2017 BHARATI GUEVARA Ot R11.2 NAUSEA WITH VOMITING, UNSPECIFIED 02/15/2017 BHARATI GUEVARA Ot Z79.899 OTHER BRAILLE TYPIST (CURRENT) DRUG THERAPY 02/19/2017 BHARATI GUEVARA Ot I10 ESSENTIAL (PRIMARY) HYPERTENSION 02/19/2017 BHARATI GUEVARA Ot N39.0 URINARY TRACT INFECTION, SITE NOT SPECIF 02/19/2017 BHARATI GUEVARA Ot R11.2 NAUSEA WITH VOMITING, UNSPECIFIED 02/19/2017 BHARATI GUEVARA Ot Z79.899 OTHER NURSING HOME (CURRENT) DRUG THERAPY 02/20/2017 BHARATI GUEVARA L Ot I10 ESSENTIAL (PRIMARY) HYPERTENSION 02/20/2017 BHARATI GUEVARA L Ot N39.0 URINARY TRACT INFECTION, SITE NOT SPECIF 02/20/2017 BHARATI GUEVARA L Ot R11.2 NAUSEA WITH VOMITING, UNSPECIFIED 02/20/2017 BHARATI GUEVARA Ot Z79.899 OTHER BRAILLE TYPIST (CURRENT) DRUG THERAPY Procedures Code [place] [address] [place] HEAD/BRAIN W/O & W/DYE 01/24/2013 SHANTELLE HARRIS 01/2013 95981 THERAPUTIC INJ SQ/IM 12/16/2013 J1885 TORADOL INJ 12/[address] CHEST W/DYE 14398 CT CHEST W/DYE OTJOSE RAFAEL DICKEY 05/26/2014 S0281 CARE COORDINATION 09/09/2014 S0280 HEALTH PROMOTION 09/10/2014 S0280 HEALTH PROMOTION 10/02/2014 S0280 HEALTH PROMOTION 12/04/2014 S0280 HEALTH PROMOTION 12/23/2014 Results Test Result Range Comprehensive metabolic panel - 07/09/16 10:54 Serum or plasma sodium measurement (moles/volume) 141 mmol/ L 135-145 Serum or plasma potassium measurement (moles/volume) 4.3 mmol/L 3.6-5.0 Serum or plasma chloride measurement (moles/volume) 107 mmol /L 98-107 Carbon dioxide 26 mmol/L 21-32 Serum or plasma anion gap determination (moles/volume) 8 mmol/L 5-14 Serum or plasma urea nitrogen measurement (mass/volume) 7 mg /dL 7-18 Serum or plasma creatinine measurement (mass/volume) 0.92 mg /dL 0.60-1.30 Serum or plasma urea nitrogen/creatinine mass ratio 8 NRG Serum or plasma creatinine measurement with calculation of estimated glomerular filtration rate > NRG Serum or plasma glucose measurement (mass/volume) 91 mg/dL 70-105 Serum or plasma calcium measurement (mass/volume) 9.1 mg/dL 8.5-10.1 Serum or plasma total bilirubin measurement (mass/volume) 0.1 mg/dL 0.1-1.0 Serum or plasma alkaline phosphatase measurement (enzymatic activity/volume) 76 U/L 40-136 Serum or plasma aspartate aminotransferase measurement (enzymatic activity/ volume) 15 U/L 5-34 Serum or plasma alanine aminotransferase measurement (enzymatic activity/volume ) 17 U/L 0-55 Serum or plasma protein measurement (mass/volume) 6.3 g/dL 6.4-8.2 Serum or plasma albumin measurement (mass/volume) 4.1 g/dL 3.2-4.5 Lipid 1996 panel - 07/09/16 10:54 Serum or plasma triglyceride measurement (mass/volume) 137 mg/dL <150 Serum or plasma cholesterol measurement (mass/volume) 188 mg /dL < 200 Serum or plasma cholesterol in HDL measurement (mass/volume) 33 mg/dL 40-60 Cholesterol in LDL [mass/volume] in serum or plasma by direct assay 141 mg/dL 1-129 Serum or plasma cholesterol in VLDL measurement (mass/volume) 27 mg/dL 5-40 Serum or plasma thyrotropin measurement by detection limit <=0.05 miu/l (units/ volume) - 07/09/16 10:54 Serum or plasma thyrotropin measurement by detection limit <=0.05 miu/l (units/ volume) 1.35 u[iU]/mL 0.35-4.94 25-hydroxyvitamin D measurement - 07/09/16 10:54 25-hydroxy vitamin D measurement 27 % 30- 100 LITHIUM LEVEL - 07/09/16 10:54 [place] [mass/volume] in serum or plasma 0.5 % 0.5-1.5 Complete blood count (CBC) with automated white blood cell (WBC) differential - 07/26/16 13:15 Blood leukocytes automated count (number/volume) 7.7 10*3/ uL 4.3-11.0 Blood erythrocytes automated count (number/volume) 4.34 10*6 /uL 4.35-5.85 Venous blood hemoglobin measurement (mass/volume) 13.8 g/dL 11.5-16.0 Blood hematocrit (volume fraction) 40 % 35-52 Automated erythrocyte mean corpuscular volume 93 [foz_us] 80-99 Automated erythrocyte mean corpuscular hemoglobin (mass per erythrocyte) 32 pg 25-34 Automated erythrocyte mean corpuscular hemoglobin concentration measurement ( mass/volume) 34 g/dL 32-36 Automated erythrocyte distribution width ratio 12.1 % 10.0-14.5 Automated blood platelet count (count/volume) 238 10*3/uL 130-400 Automated blood platelet mean volume measurement 9.7 [foz_us ] 7.4-10.4 Automated blood neutrophils/100 leukocytes 72 % 42-75 Automated blood lymphocytes/100 leukocytes 21 % 12-44 Blood monocytes/100 leukocytes 5 % 0-12 Automated blood eosinophils/100 leukocytes 2 % 0-10 Automated blood basophils/100 leukocytes 0 % 0-10 Blood neutrophils automated count (number/volume) 5.5 10*3 1.8-7.8 Blood lymphocytes automated count (number/volume) 1.6 10*3 1.0-4.0 Blood monocytes automated count (number/volume) 0.4 10*3 0.0-1.0 Automated eosinophil count 0.1 10*3/uL 0.0-0.3 Automated blood basophil count (count/volume) 0.0 10*3/uL 0.0-0.1 PT panel in platelet poor plasma by coagulation assay - 07/26/16 13:15 Prothrombin time (PT) in platelet poor plasma by coagulation assay 11.8 s 12.2-14.7 INR in platelet poor plasma or blood by coagulation assay 0.9 0.8-1.4 Activated partial thromboplastin time (aPTT) in platelet poor plasma bycoagulation assay - 07/26/16 13:15 Activated partial thromboplastin time (aPTT) in platelet poor plasma bycoagulation assay 29 s 24-35 Comprehensive metabolic panel - 07/26/16 13:15 Serum or plasma sodium measurement (moles/volume) 140 mmol/ L 135-145 Serum or plasma potassium measurement (moles/volume) 4.2 mmol/L 3.6-5.0 Serum or plasma chloride measurement (moles/volume) 106 mmol /L 98-107 Carbon dioxide 26 mmol/L 21-32 Serum or plasma anion gap determination (moles/volume) 8 mmol/L 5-14 Serum or plasma urea nitrogen measurement (mass/volume) 9 mg /dL 7-18 Serum or plasma creatinine measurement (mass/volume) 0.95 mg /dL 0.60-1.30 Serum or plasma urea nitrogen/creatinine mass ratio 9 NRG Serum or plasma creatinine measurement with calculation of estimated glomerular filtration rate > NRG Serum or plasma glucose measurement (mass/volume) 97 mg/dL 70-105 Serum or plasma calcium measurement (mass/volume) 9.5 mg/dL 8.5-10.1 Serum or plasma total bilirubin measurement (mass/volume) 0.3 mg/dL 0.1-1.0 Serum or plasma alkaline phosphatase measurement (enzymatic activity/volume) 67 U/L 40-136 Serum or plasma aspartate aminotransferase measurement (enzymatic activity/ volume) 12 U/L 5-34 Serum or plasma alanine aminotransferase measurement (enzymatic activity/volume ) 15 U/L 0-55 Serum or plasma protein measurement (mass/volume) 6.5 g/dL 6.4-8.2 Serum or plasma albumin measurement (mass/volume) 4.2 g/dL 3.2-4.5 Magnesium - 07/26/16 13:15 Magnesium 2.2 mg/dL 1.8-2.4 Erythrocyte sedimentation rate by westergren method - 07/26/16 13:15 Erythrocyte sedimentation rate by westergren method 9 mm 0-20 Serum or plasma thyrotropin measurement by detection limit <=0.05 miu/l (units/ volume) - 07/26/16 13:15 Serum or plasma thyrotropin measurement by detection limit <=0.05 miu/l (units/ volume) 1.38 u[iU]/mL 0.35-4.94 Complete blood count (CBC) with automated white blood cell (WBC) differential - 01/18/17 19:09 Blood leukocytes automated count (number/volume) 9.3 10*3/ uL 4.3-11.0 Blood erythrocytes automated count (number/volume) 4.44 10*6 /uL 4.35-5.85 Venous blood hemoglobin measurement (mass/volume) 13.9 g/dL 11.5-16.0 Blood hematocrit (volume fraction) 41 % 35-52 Automated erythrocyte mean corpuscular volume 92 [foz_us] 80-99 Automated erythrocyte mean corpuscular hemoglobin (mass per erythrocyte) 31 pg 25-34 Automated erythrocyte mean corpuscular hemoglobin concentration measurement ( mass/volume) 34 g/dL 32-36 Automated erythrocyte distribution width ratio 12.0 % 10.0-14.5 Automated blood platelet count (count/volume) 301 10*3/uL 130-400 Automated blood platelet mean volume measurement 9.8 [foz_us ] 7.4-10.4 Automated blood neutrophils/100 leukocytes 72 % 42-75 Automated blood lymphocytes/100 leukocytes 21 % 12-44 Blood monocytes/100 leukocytes 6 % 0-12 Automated blood eosinophils/100 leukocytes 0 % 0-10 Automated blood basophils/100 leukocytes 0 % 0-10 Blood neutrophils automated count (number/volume) 6.7 10*3 1.8-7.8 Blood lymphocytes automated count (number/volume) 2.0 10*3 1.0-4.0 Blood monocytes automated count (number/volume) 0.6 10*3 0.0-1.0 Automated eosinophil count 0.0 10*3/uL 0.0-0.3 Automated blood basophil count (count/volume) 0.0 10*3/uL 0.0-0.1 Fibrin D-dimer FEU measurement in platelet poor plasma (mass/volume) - 19:09 Fibrin D-dimer FEU measurement in platelet poor plasma (mass/volume) 0.50 ug/mL 0.00-0.49 Whole blood basic metabolic panel - 01/18/17 19:09 Serum or plasma sodium measurement (moles/volume) 141 mmol/ L 135-145 Serum or plasma potassium measurement (moles/volume) 3.1 mmol/L 3.6-5.0 Serum or plasma chloride measurement (moles/volume) 106 mmol /L 98-107 Carbon dioxide 18 mmol/L 21-32 Serum or plasma anion gap determination (moles/volume) 17 mmol/L 5-14 Serum or plasma urea nitrogen measurement (mass/volume) 9 mg /dL 7-18 Serum or plasma creatinine measurement (mass/volume) 0.93 mg /dL 0.60-1.30 Serum or plasma urea nitrogen/creatinine mass ratio 10 NRG Serum or plasma creatinine measurement with calculation of estimated glomerular filtration rate > NRG Serum or plasma glucose measurement (mass/volume) 93 mg/dL 70-105 Serum or plasma calcium measurement (mass/volume) 9.6 mg/dL 8.5-10.1 Complete urinalysis with reflex to culture - 01/18/17 19:55 Urine color determination OTHER NRG Urine clarity determination CLEAR NRG Urine pH measurement by test strip 7 5- 9 Specific gravity of urine by test strip 1.010 1.016-1.022 Urine protein assay by test strip, semi-quantitative NEGATIVE NEGATIVE Urine glucose detection by automated test strip NEGATIVE NEGATIVE Erythrocytes detection in urine sediment by light microscopy NEGATIVE NEGATIVE Urine ketones detection by automated test strip NEGATIVE NEGATIVE Urine nitrite detection by test strip NEGATIVE NEGATIVE Urine total bilirubin detection by test strip NEGATIVE NEGATIVE Urine urobilinogen measurement by automated test strip (mass/volume) NORMAL NORMAL Urine leukocyte esterase detection by dipstick 1+ NEGATIVE Automated urine sediment erythrocyte count by microscopy (number/high power field) RARE NRG Automated urine sediment leukocyte count by microscopy (number/high power field ) [HPF] NRG Bacteria detection in urine sediment by light microscopy NONE NRG Squamous epithelial cells detection in urine sediment by light microscopy 0-2 NRG Crystals detection in urine sediment by light microscopy NONE NRG Casts detection in urine sediment by light microscopy NONE NRG Mucus detection in urine sediment by light microscopy NEGATIVE NRG Complete urinalysis with reflex to culture NO NRG Complete blood count (CBC) with automated white blood cell (WBC) differential - 02/14/17 13:59 Blood leukocytes automated count (number/volume) 5.9 10*3/ uL 4.3-11.0 Blood erythrocytes automated count (number/volume) 4.49 10*6 /uL 4.35-5.85 Venous blood hemoglobin measurement (mass/volume) 14.3 g/dL 11.5-16.0 Blood hematocrit (volume fraction) 42 % 35-52 Automated erythrocyte mean corpuscular volume 92 [foz_us] 80-99 Automated erythrocyte mean corpuscular hemoglobin (mass per erythrocyte) 32 pg 25-34 Automated erythrocyte mean corpuscular hemoglobin concentration measurement ( mass/volume) 35 g/dL 32-36 Automated erythrocyte distribution width ratio 12.2 % 10.0-14.5 Automated blood platelet count (count/volume) 220 10*3/uL 130-400 Automated blood platelet mean volume measurement 10.0 [foz_ us] 7.4-10.4 Automated blood neutrophils/100 leukocytes 84 % 42-75 Automated blood lymphocytes/100 leukocytes 11 % 12-44 Blood monocytes/100 leukocytes 3 % 0-12 Automated blood eosinophils/100 leukocytes 1 % 0-10 Automated blood basophils/100 leukocytes 0 % 0-10 Blood neutrophils automated count (number/volume) 5.0 10*3 1.8-7.8 Blood lymphocytes automated count (number/volume) 0.6 10*3 1.0-4.0 Blood monocytes automated count (number/volume) 0.2 10*3 0.0-1.0 Automated eosinophil count 0.1 10*3/uL 0.0-0.3 Automated blood basophil count (count/volume) 0.0 10*3/uL 0.0-0.1 Comprehensive metabolic panel - 02/14/17 13:59 Serum or plasma sodium measurement (moles/volume) 140 mmol/ L 135-145 Serum or plasma potassium measurement (moles/volume) 3.9 mmol/L 3.6-5.0 Serum or plasma chloride measurement (moles/volume) 104 mmol /L 98-107 Carbon dioxide 27 mmol/L 21-32 Serum or plasma anion gap determination (moles/volume) 9 mmol/L 5-14 Serum or plasma urea nitrogen measurement (mass/volume) 11 mg/dL 7-18 Serum or plasma creatinine measurement (mass/volume) 0.97 mg /dL 0.60-1.30 Serum or plasma urea nitrogen/creatinine mass ratio 11 NRG Serum or plasma creatinine measurement with calculation of estimated glomerular filtration rate > NRG Serum or plasma glucose measurement (mass/volume) 102 mg/dL 70-105 Serum or plasma calcium measurement (mass/volume) 9.3 mg/dL 8.5-10.1 Serum or plasma total bilirubin measurement (mass/volume) 0.7 mg/dL 0.1-1.0 Serum or plasma alkaline phosphatase measurement (enzymatic activity/volume) 64 U/L 40-136 Serum or plasma aspartate aminotransferase measurement (enzymatic activity/ volume) 13 U/L 5-34 Serum or plasma alanine aminotransferase measurement (enzymatic activity/volume ) 12 U/L 0-55 Serum or plasma protein measurement (mass/volume) 6.4 g/dL 6.4-8.2 Serum or plasma albumin measurement (mass/volume) 4.1 g/dL 3.2-4.5 Lipase - 02/14/17 13:59 Lipase 20 U/L 8-78 Complete urinalysis with reflex to culture - 02/14/17 14:59 Urine color determination YELLOW NRG Urine clarity determination CLEAR NRG Urine pH measurement by test strip 8 5- 9 Specific gravity of urine by test strip 1.010 1.016-1.022 Urine protein assay by test strip, semi-quantitative 2+ NEGATIVE Urine glucose detection by automated test strip NEGATIVE NEGATIVE Erythrocytes detection in urine sediment by light microscopy NEGATIVE NEGATIVE Urine ketones detection by automated test strip NEGATIVE NEGATIVE Urine nitrite detection by test strip NEGATIVE NEGATIVE Urine total bilirubin detection by test strip NEGATIVE NEGATIVE Urine urobilinogen measurement by automated test strip (mass/volume) 4 mg/dL NORMAL Urine leukocyte esterase detection by dipstick 2+ NEGATIVE Automated urine sediment erythrocyte count by microscopy (number/high power field) NONE NRG Automated urine sediment leukocyte count by microscopy (number/high power field ) [HPF] NRG Bacteria detection in urine sediment by light microscopy TRACE NRG Squamous epithelial cells detection in urine sediment by light microscopy 2-5 NRG Crystals detection in urine sediment by light microscopy NONE NRG Casts detection in urine sediment by light microscopy NONE NRG Mucus detection in urine sediment by light microscopy NEGATIVE NRG Complete urinalysis with reflex to culture YES NRG Bacterial urine culture - 02/14/17 14:59 Bacterial urine culture FOOTNOTE NRG Encounters ACCT No. Visit Date/Time Discharge Status Pt. Type Provider Facility Loc./Unit Complaint [id number] 01/23/2015 00:00:00 01/23/2015 23: 59:59 CLS Outpatient JORDI PINO RN [id number] 12/17/2014 13:45:00 12/17/2014 23: 59:59 CLS Outpatient JORDI PINO RN [id number] 11/12/2014 11:00:00 11/12/2014 23: 59:59 CLS Outpatient JORDI PINO RN [id number] 09/22/2014 16:29:00 09/22/2014 23: 59:59 CLS Outpatient JORDI PINO RN [id number] 09/09/2014 16:00:00 09/09/2014 23: 59:59 CLS Outpatient JORDI PINO RN [id number] 05/26/2014 08:23:00 05/26/2014 23: 59:59 CLS Outpatient ELLIOT FERRER BUBBA L [id number] 04/21/2014 15:40:00 04/21/2014 23: 59:59 CLS Outpatient TRAVIS BURROWS APRN [id number] 02/05/2014 14:15:00 02/05/2014 23: 59:59 CLS Outpatient KAYLYN BLACKWELL DO [id number] 12/16/2013 12:27:00 12/16/2013 23: 59:59 CLS Outpatient TRAVIS BURROWS APRN [id number] 02/20/2013 14:58:00 02/20/2013 23: 59:59 CLS Outpatient TRAVIS BURROWS APRN [id number] 01/28/2013 15:33:00 01/28/2013 23: 59:59 CLS Outpatient TRAVIS BURROWS APRN [id number] 01/21/2013 16:31:00 01/21/2013 23: 59:59 CLS Outpatient SAMM FERRER CLAYTON MCNULTY [id number] 08/17/2012 10:27:00 08/17/2012 23: 59:59 CLS Outpatient CLAYTON QUIJANO APRN [id number] 08/17/2012 10:27:00 08/17/2012 23:59: 59 CLS Outpatient CLAYTON QUIJANO APRN [id number] 04/29/2013 13:17:00 Document Registration [id number] 03/29/2013 14:48:00 Document Registration [id number] 03/12/2013 13:27:00 Document Registration
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
--- OUTSIDE RECORDS SUMMARY | 2017-03-05 04:29 | XMS REPORT ---
Author Author BUBAB ZARATE [facility] Address [address] [place] [address] Care Team Providers Care Horseback Riding Instructor Name Role Phone BUBBA ZARATE Unavailable PROBLEMS Type Condition ICD9-CM Code GCC15-VH Code Onset Dates Condition Status SNOMED Code Problem Right leg paresthesias R20.2 Active 456758200 Problem Right leg swelling M79.89 Active 754646472 Problem Vitamin D deficiency E55.9 Active 13695966 Problem Right foot pain M79.671 Active 75842849 Problem Bruising, spontaneous R23.3 Active 059911595 Problem Bruising tendency D69.9 Active 96454324 ALLERGIES No Known Allergies SOCIAL HISTORY No smoking Hx information available PLAN OF CARE VITAL SIGNS MEDICATIONS No Known Medications RESULTS No Results PROCEDURES No Known procedures IMMUNIZATIONS No Known Immunizations
--- OUTSIDE RECORDS SUMMARY | 2017-03-05 04:29 | XMS REPORT ---
Author Author BUBBA ZARATE [facility] [employer] Address Unknown Phone Unavailable Care Team Providers Care Telecommunications Operator Name Role Phone BUBBA ZARATE Unavailable Allergies, Adverse Reactions, Alerts Substance Reaction Event Type Remeron Info Not Available Drug Allergy Penicillin V Potassium Info Not Available Drug Allergy Erythromycin Base Info Not Available Drug Allergy BusPIRone HCl Info Not Available Drug Allergy Problems Problem Type Condition Code Onset Dates Condition Status Problem Right foot pain M79.671 Active Problem Bruising tendency D69.9 Active Problem Vitamin D deficiency E55.9 Active Problem Elevated blood pressure I10 Active Problem Erythema nodosum L52 Active Problem Paresthesia of bilateral legs R20.2 Active Problem Right leg swelling M79.89 Active Problem Bruising, spontaneous R23.3 Active Problem Long-term use of high-risk medication Z79.899 Active Problem Right leg paresthesias R20.2 Active Assessment Elevated blood pressure I10 Active Assessment Long-term use of high-risk medication Z79.899 Active Assessment Erythema nodosum L52 Active Assessment Acute low back pain due to trauma M54.5 Active Assessment Paresthesia of bilateral legs R20.2 Active Medications Medication Code System Code Instructions Start Date End Date Status Dosage [place] Carbonate ER [facility] [address]-00 450 MG Orally at bedtime 2 tablet Minipress [facility] [address]-24 5 MG Orally Once a day 1 capsule at bedtime Bactrim DS [facility] [address]-96 800-160 MG Orally Twice a day 1 tablet Ibuprofen [facility] [address]-26 800 MG Orally Three times a day Sep 14, 2016 Dec 13, 2016 1 tablet Restoril [facility] [address]-37 30 MG Orally Once a day 5 capsule at bedtime as needed Xanax [facility] [address]-94 2 MG Orally Three times a day 1 tablet Amitriptyline HCl [facility] [address]-22 25 MG Orally Once a day at hs 1 tablet Tegretol [facility] [address]-76 200 MG Orally Twice a day 1 tablet Vyvanse [facility] [address]-64 30 MG Orally Once a day 1 capsule in the morning Procedures Procedure Coding System Code Date LAB [facility] CPT-4 NOBLL Sep 14, 2016 Office Visit, Est Pt., Level 5 CPT-4 68526 Sep 14, 2016 ELECTROCARDIOGRAM, TRACING CPT-4 23909 Sep 14, 2016 TORADOL (IM) 60 MG/2ML (UP TO 15 MG) CPT-4 J1885 Sep 14, 2016 VENIPUNCT, ROUTINE* CPT-4 07760 Sep 14, 2016 THER/PROPH/DIAG INJ, SC/IM CPT-4 82494 Sep 14, 2016 Vital Signs Date/Time: Sep 14, 2016 Cardiac Monitoring Heart Rate 68 bpm Weight 245.5 lbs Height 69 in BMI 36.25 Index Blood Pressure Diastolic 90 mmHg Blood Pressure Systolic 140 mmHg Results Name Result Date Reference Range Unit Abnormality Flag ROUTINE VENIPUNCTURE Summary Purpose [employer] Submission
--- OUTSIDE RECORDS SUMMARY | 2017-03-05 04:30 | XMS REPORT ---
Author Author BUBBA ZARATE [facility] Address [address] [place] [address] Care Team Providers Care Viticulture Teacher Name Role Phone BUBBA ZARATE Unavailable PROBLEMS Type Condition ICD9-CM Code [id number] Code Onset Dates Condition Status SNOMED Code Assessment Erythema nodosum L52 Jul, Active 51234756 Assessment Chronic eustachian tube dysfunction, right H69.81 Jul, Active 19304044 Problem Right leg paresthesias R20.2 Active 922012696 Problem Right leg swelling M79.89 Active 941143649 Problem Vitamin D deficiency E55.9 Active 61117828 Problem Right foot pain M79.671 Active 16346560 Problem Bruising, spontaneous R23.3 Active 591585546 Problem Bruising tendency D69.9 Active 82583993 ALLERGIES Substance Reaction Event Type Date Status Remeron Unknown Drug Allergy Jul, Active Penicillin V Potassium Unknown Drug Allergy Jul, Active Erythromycin Base Unknown Drug Allergy Jul, Active BusPIRone HCl Unknown Drug Allergy Jul, Active SOCIAL HISTORY No smoking Hx information available PLAN OF CARE VITAL SIGNS Height 69 in 2016-08-10 Weight 244.0 lbs 2016-08-10 Heart Rate 80 bpm 2016-08-10 Respiratory Rate 20 2016-08-10 BMI 36.03 kg/m2 2016-08-10 Blood pressure systolic 128 mmHg 2016-08-10 Blood pressure diastolic 80 mmHg 2016-08-10 MEDICATIONS Medication Instructions Dosage Frequency Start Date End Date Duration Status Xanax 2 MG Orally Three times a day 1 tablet 8h Active [place] Carbonate ER 450 MG Orally at bedtime 2 tablet Active Minipress 5 MG Orally Once a day 1 capsule at bedtime 24h Active Bactrim DS 800-160 MG Orally Twice a day 1 tablet 12h Active Tegretol 200 MG Orally Twice a day 1 tablet 12h Active Restoril 30 MG Orally Once a day 5 capsule at bedtime as needed 24h Active Vyvanse 30 MG Orally Once a day 1 capsule in the morning 24h Active Amitriptyline HCl 25 MG Orally Once a day at hs 1 tablet Jul, 30 day(s) Active Ibuprofen 800 MG Orally Three times a day 1 tablet 8h Jul,Aug 30 day(s) Active RESULTS Name Result Date Reference Range ASO 2016-08-10 Antistreptolysin O Ab 61.6 0.0-200.0 PROCEDURES Procedure Date Ordered Related Diagnosis Body Site LAB NOT BILLED BY [facility] Aug 10, 2016 VENIPUNCT, ROUTINE* Aug 10, 2016 Office Visit, Est Pt., Level 5 Aug 10, 2016 IMMUNIZATIONS No Known Immunizations
== END 2017-02-14 16:20 | disposition home or self-care (01) ==
LOC: EDUNIT# 12:51 → ER 12:52
DX: N39.0 Urinary tract infection, site not specified (principal); R11.2 Nausea with vomiting, unspecified; I10 Essential (primary) hypertension; Z79.899 Other long term (current) drug therapy
CPT/HCPCS: 36415; 80053; 81000; 83690; 85025; 87088; 96361; 96374

== ENCOUNTER 2017-06-13 09:13 | Emergency (ER) | payer SELFPAY ==
[~2017-06-13] VITALS: Ht 175.3 cm; Wt 99.8 kg
[~2017-06-13 09:13] MED LIST changes: +NITR-65 PO; +ONDA8TAB13 PO
[2017-06-13] MEDS ORDERED: LIDOCAINE 1% INJ 20 ML (XYLOCAINE) VIAL INJ STA (10:07)
[2017-06-13] MEDS ORDERED: SULF-222 PO (10:12)
--- NOTE | 2017-06-13 10:12 | ED Integumentary General ---
General Chief Complaint: Skin/Wound Problems Stated Complaint: ABSESS ON RT INNER THIGH Nursing Triage Note: PT HAS ABSCESS TO R INNER THIGH. Source: patient Exam Limitations: no limitations History of Present Illness Time seen by provider: 10:01 Initial Comments Here with report of abscess to the right upper inner thigh. States this comes and goes. It has gotten worse recently and is painful and needs to be drained. Denies fever or chills. Denies other concerns. Timing/Duration: week, getting worse Severity: moderate Location: extremities Associated Symptoms: change in skin texture, No fever, swelling/mass/lumps Allergies and Home Medications Allergies Coded Allergies: erythromycin base (Verified Allergy, Unknown, 01/11/06) lidocaine (Verified Allergy, Unknown, 07/02/10) PT STATES THAT SHE IS OKAY WITH THE LIDOCAINE THEY USE WITH IV STARTS penicillin G (Verified Allergy, Unknown, 01/11/06) mirtazapine (Verified Adverse Reaction, Unknown, ANGRY, 05/11/15) Uncoded Allergies: ORANGE JUICE (Allergy, Severe, STOPPED BREATHING, 02/24/11) Home Medications Alprazolam 2 Mg Tablet, 2 MG PO TID, (Reported) D-Methorphan Hb/P-Epd HCl/Bpm 118 Ml Syrup, 5 ML PO Q8H PRN for CONGESTION, #30 Prescribed by: GERSON JAEGER on 01/18/172027 Lamotrigine 150 Mg Tablet, 150 MG PO BID, (Reported) Lisdexamfetamine Dimesylate 40 Mg Capsule, #30 (Reported) Cunningham Carbonate 300 Mg Capsule, 300, #30 (Reported) Meloxicam 15 Mg Tablet, 15 MG PO DAILY, #10 Prescribed by: BLUE LOVE on 07/26/16 1425 Naproxen Sodium 220 Mg Capsule, 220 MG PO BID, (Reported) Nitrofurantoin Monohyd/M-Cryst 100 Mg Capsule, 1 TAB PO BID for 5 Days, #10 Ref 0 Prescribed by: BHARATI WELLS on 02/14/17 1612 Ondansetron 8 Mg Tab.rapdis, 8 MG PO Q6H PRN for NAUSEA/VOMITING, #10 Ref 0 Prescribed by: BHARATI WELLS on 02/14/17 1612 Ondansetron Hcl 4 Mg Tab, 4 MG PO Q4H, #5 FOR NAUSEA AND VOMITING Prescribed by: BLUE LOVE on 10/09/13 2323 Prednisone 20 Mg Tab, 40 MG PO DAILY, #10 Ref 0 Prescribed by: BHARATI WELLS on 07/02/16 1532 Sulfamethoxazole/Trimethoprim 1 Each Tablet, 1 EACH PO BID, #20 Prescribed by: BLUE LOVE on 07/26/16 1425 Sulfamethoxazole/Trimethoprim 1 Each Tablet, 1 EACH PO BID, #14 Ref 0 Prescribed by: SARA DELACRUZ on 06/13/17 1012 Temazepam 30 Mg Capsule, #30 (Reported) Topiramate 100 Mg Tablet, 100 MG PO BID, (Reported) Tramadol HCl 50 Mg Tablet, 50 MG PO Q4H PRN for PAIN, #14 Ref 0 Prescribed by: BHARATI WELLS on 07/02/16 1532 Constitutional: see HPI, No chills, No fever Respiratory: no symptoms reported Cardiovascular: no symptoms reported Skin: see HPI, change in color, lesions Psychiatric/Neurological: No Symptoms Reported Past Kjlucxt-Izjtwk-Gzpqnl Hx Patient Social History Alcohol Use: Denies Use Recreational Drug Use: Yes (IN THE PAST) Smoking Status: Current Everyday Smoker Type Used: Cigarettes 2nd Hand Smoke Exposure: Yes Recent Foreign Travel: No Contact w/Someone Who Travel: No Recent Infectious Disease Expo: No Recent Hopitalizations: No Immunizations Up To Date Tetanus Booster (TDap): More than 5yrs Date of Pneumonia Vaccine: Sep 27, 2010 Date of Influenza Vaccine: Jul 21, 2013 Seasonal Allergies Seasonal Allergies: No Surgeries HX Surgeries: Yes (skin graft) Surgeries: Abdominal, Section, Gallbladder, Hysterectomy, Oophorectomy , Orthopedic, Tubal Ligation Respiratory Hx Respiratory Disorders: Yes Respiratory Disorders: Asthma Cardiovascular Hx Cardiac Disorders: Yes (HTN WITH WEIGHT GAIN) Cardiac Disorders: Hypertension, Irregular Heartbeat Neurological Hx Neurological Disorders: Yes Neurological Disorders: Concussion, Seizure Disorder Reproductive System Hx Reproductive Disorders: No Sexually Transmitted Disease: No HIV/AIDS: No Female Reproductive Disorders: Menstrual Problems, 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 Genitourinary Hx Genitourinary Disorders: Yes (INTERSTITIAL CYSTITIS) Genitourinary Disorders: UTI-Chronic Gastrointestinal Hx Gastrointestinal Disorders: Yes (S/P ASHVIN; BENIGN COLON TUMOR-PER PT) Gastrointestinal Disorders: Gall Bladder Disease Musculoskeletal Hx Musculoskeletal Disorders: Yes Musculoskeletal Disorders: Fractures Endocrine Hx Endocrine Disorders: No HEENT HX ENT Disorders: No Cancer Hx Cancer: No Psychosocial Hx Psychiatric Problems: Yes Behavioral Health Disorders: Anxiety, Bipolar, Personality Disorder, Schizophrenia, Depression Integumentary HX Skin/Integumentary Disorder: No Blood Transfusions Hx Blood Disorders: No Adverse Reaction to a Blood Tr: No Reviewed Nursing Assessment Reviewed/Agree w Nursing PMH: Yes Family Medical History Significant Family History: No Pertinent Family Hx Family Medial History: Cancer GRANDPARENTS Cataract GRANDPARENTS Congestive heart failure GRANDPARENTS Family history: Alzheimer's disease GRANDPARENTS Family history: Arthritis GRANDPARENTS Family history: Asthma 03 MOTHER 09 BROTHER GRANDPARENTS Family history: Cardiovascular disease GRANDPARENTS Family history: Diabetes mellitus GRANDPARENTS Family history: Hypertension 03 MOTHER GRANDPARENTS Heart disease 09 BROTHER GRANDPARENTS History of - respiratory disease GRANDPARENTS Kidney disease 09 BROTHER Prostate cancer GRANDPARENTS Stroke GRANDPARENTS Physical Exam Vital Signs Vital Sign - Last 12Hours 06/13/17 09:23 Temp 98.1 Pulse 79 Resp 18 B/P (MAP) 142/89 Pulse Ox 98 O2 Delivery Room Air Capillary Refill : Less Than 3 Seconds General Appearance: WD/WN, no apparent distress Cardiovascular: regular rate, rhythm, no murmur Respiratory: lungs clear, normal breath sounds Neurologic/Psychiatric: alert, oriented x 3 Skin: normal color, warm/dry Skin Problem Location: lower extremities (right upper inner thigh) Skin Problem Character: abscess (1 x 2 cm), erythema (2 x 2 centimeter) I&D : Blade Size: 11 I & D Procedure: betadine prep, sterile dressing applied, Wound Packing Packing/Drain: Idoform 1/2 Progress Prepped with Betadine. Anesthetized with 1 percent lidocaine 6 mL. Open with 11 blade 1 cm incision. Half-inch iodoform packing placed. Covered with dressing. Tolerated procedure well. No complications. Progress/Results/Core Measures Results/Orders My Orders Orders - SARA DELACRUZ MD Lidocaine 1% Injection (Xylocaine 1% Inj (06/13/17 10:07) Wound Culture (06/13/17 10:12) Vital Signs/I&O Vital Sign - Last 12Hours 06/13/17 09:23 Temp 98.1 Pulse 79 Resp 18 B/P (MAP) 142/89 Pulse Ox 98 O2 Delivery Room Air Blood Pressure Mean: 106 Progress Note : Progress Note Seen and evaluated. I&D performed by me. Tolerated well. No complications. Culture obtained. Discharged home with return precautions. Patient verbalize understanding instructions and agreement with plan. Departure Impression Impression: Primary Impression: Abscess Disposition: 01 HOME, SELF-CARE Condition: Improved Departure-Patient Inst. Decision time for Depature: 10:11 Referrals: [facility] (PCP/Family) Primary Care Physician Patient Instructions: Skin Abscess, Wound Incision and Drainage (DC) Add. Discharge Instructions: All discharge instructions reviewed with patient and/or family. Voiced understanding. You may take ibuprofen 800 mg every 8 hours as needed for pain. You may take Tylenol 1000 mg every 8 hours as needed for pain. Keep packing in place but change dressing twice daily. Return 2 days for packing removal. You may shower but do not remove packing. Return for worse pain, fever, vomiting, weakness, breathing problems or other concerns as needed. Scripts Sulfamethoxazole/Trimethoprim (Sulfamethoxazole-Tmp Ds Tablet) 1 Each Tablet 1 EACH PO BID, #14 TAB 0 Refills Prov: SARA DELACRUZ MD 06/13/17 SARA DELACRUZ MD Jun 13, 2017 10:12
[2017-06-13 10:32] VITALS: BP 142/89
== END 2017-06-13 10:32 | disposition home or self-care (01) ==
LOC: EDUNIT# 09:13 → ER 09:16
DX: L02.415 Cutaneous abscess of right lower limb (principal); F41.9 Anxiety disorder, unspecified; F31.9 Bipolar disorder, unspecified; F20.9 Schizophrenia, unspecified; F60.9 Personality disorder, unspecified; G40.909 Epilepsy, unspecified, not intractable, without status epilepticus; I10 Essential (primary) hypertension; J45.909 Unspecified asthma, uncomplicated; F17.210 Nicotine dependence, cigarettes, uncomplicated; Z98.51 Tubal ligation status; Z98.890 Other specified postprocedural states; Z90.710 Acquired absence of both cervix and uterus; Z87.42 Personal history of other diseases of the female genital tract; Z86.018 Personal history of other benign neoplasm; Z87.39 Personal history of other diseases of the musculoskeletal system and connective tissue
CPT/HCPCS: 10160; 87070; 87077; 87186; 87205

== ENCOUNTER 2017-09-13 18:46 | Emergency (ER) | payer SELFPAY ==
[~2017-09-13] VITALS: Ht 175.3 cm; Wt 108.9 kg
[~2017-09-13 18:46] MED LIST changes: +SULF-222 PO
--- OUTSIDE RECORDS SUMMARY | 2017-09-13 18:52 | XMS REPORT | Clinical Summary ---
Author Author [facility] Organization [facility] Address Unknown Phone Unavailable Care Team Providers Care Tree Specialist Name Role Phone PCP Unavailable Source Comments Some departments are not documenting in the electronic medical record. If you do not see the information that you expected, contact Release of Information in the Health Information Management department at [phone] for further assistance in locating additional records.[facility] Allergies Active Allergy Reactions Severity Noted Date Comments Erythromycin ANAPHYLAXIS High 11/03/2016 [place] Juice ANAPHYLAXIS High 11/03/2016 Penicillins ANAPHYLAXIS High 11/03/2016 Mirtazapine SHORTNESS OF BREATH Medium 11/03/2016 Current Medications Prescription Sig. Disp. Refills Start [...] three times 17 daily as needed (pain). 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, without status epilepticus 11/03/2016 (HCC) Anxiety 11/03/2016 Chronic bilateral low back pain with bilateral sciatica 11/03/2016 Family History Medical History Relation Name Comments Diabetes Father Hypertension Father Diabetes Maternal Grandfather Cancer Maternal Lung cancer Grandmother Diabetes Maternal Grandmother Diabetes Mother Hypertension Mother Cancer Paternal colon cancer Grandfather Diabetes Paternal Grandfather Diabetes Paternal Grandmother Relation Name Status Comments Father Alive Maternal Grandfather Maternal Grandmother Alive Mother Alive Paternal Grandfather Paternal Grandmother Alive Social History Tobacco Use Types Packs/Day Years Used Date Current Every Day Smoker Sex Assigned at Date Recorded Not on file Last Filed Vital Signs Vital Sign Reading Time Taken Blood Pressure 147/85 02/17/2017 10:03 AM CDT Pulse 69 02/17/2017 10:03 AM CDT Temperature 36.4 C (97.5 F) 02/17/2017 10:03 AM CDT Respiratory Rate 16 02/17/2017 10:03 AM CDT Oxygen Saturation 99% 01/04/2017 1:52 PM BOOK SORTER Inhaled Oxygen - - Concentration Weight 104.3 kg (230 lb) 02/17/2017 10:03 AM CDT Height 175.3 cm (5' 9") 02/17/2017 10:03 AM CDT Body Mass Index 33.97 02/17/2017 10:03 AM CDT Plan of Treatment Health Maintenance Due Date Last Done Comments PHYSICAL (COMPREHENSIVE) 1994 EXAM PERTUSSIS VACCINE 1998 TETANUS VACCINE 2004 CERVICAL CANCER SCREENING 2017 INFLUENZA VACCINE 06/20/2017 Results Not on filefrom Last 3 Months
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
--- OUTSIDE RECORDS SUMMARY | 2017-09-13 18:55 | XMS REPORT ---
Author Author BUBBA ZARATE [facility] Address [address] [place] [address] Care Team Providers Care Technical Buyer Name Role Phone BUBBA ZARATE Unavailable PROBLEMS Type Condition ICD9-CM Code [id number] Code Onset Dates Condition Status SNOMED Code Problem Right foot pain M79.671 Active 81458504 Problem Bruising, spontaneous R23.3 Active 600600833 Problem Bruising tendency D69.9 Active 42810644 Problem Vitamin D deficiency E55.9 Active 91543730 Problem Erythema nodosum L52 Active 14605023 Problem Elevated blood pressure I10 Active 48933074 Problem Right leg paresthesias R20.2 Active 439605807 Problem Right leg swelling M79.89 Active 648112038 Problem Long-term use of high-risk medication Z79.899 Active 948179242 Problem Paresthesia of bilateral legs R20.2 Active 372782105 ALLERGIES No Known Allergies SOCIAL HISTORY No smoking Hx information available PLAN OF CARE VITAL SIGNS MEDICATIONS No Known Medications RESULTS No Results PROCEDURES No Known procedures IMMUNIZATIONS No Known Immunizations
[2017-09-13] MEDS ORDERED: ACETAMINOPHEN 325 MG TABLET/CAPLET (TYLENOL) PO STA (19:05)
[2017-09-13] MEDS ORDERED: ONDANSETRON 4 MG (ZOFRAN) ORAL DISSOLVE TAB SL STA (19:05)
--- NOTE | 2017-09-13 19:11 | ED Cough/URI ---
General Chief Complaint: Cough/Cold/Flu Symptoms Stated Complaint: BILAT EAR PAIN,VOMITING Nursing Triage Note: bilateral ear pain, sore throat, vomitting History of Present Illness Time seen by provider: 19:00 Initial Comments Patient reports bilateral ear pain, cough with clear productive phlegm and vomiting. Symptoms began yesterday. She reports eating at noon today and having a drink at 3 PM she has vomited approximately 4 times since the last intake. She has a chronic history of problems with ear infections. Timing/Duration: this morning Severity/Quality: mild, productive cough (clear phlegm) Prior Episodes/Possible Cause: frequent episodes Allergies and Home Medications Allergies Coded Allergies: erythromycin base (Verified Allergy, Unknown, 01/11/06) lidocaine (Verified Allergy, Unknown, 07/02/10) PT STATES THAT SHE IS OKAY WITH THE LIDOCAINE THEY USE WITH IV STARTS penicillin G (Verified Allergy, Unknown, 01/11/06) mirtazapine (Verified Adverse Reaction, Unknown, ANGRY, 05/11/15) Uncoded Allergies: ORANGE JUICE (Allergy, Severe, STOPPED BREATHING, 02/24/11) Home Medications Azithromycin 250 Mg Tablet, 250 MG PO UD, #6 TAKE 2 TABLETS TODAY, THEN TAKE 1 TABLET DAILY FOR 4 MORE DAYS Prescribed by: DENNISE SWANN on 09/13/171938 Ondansetron 8 Mg Tab.rapdis, 8 MG PO Q6H PRN for NAUSEA/VOMITING-1ST LINE, #6 Ref 0 Prescribed by: DENNISE SWANN on 09/13/171938 Constitutional: no symptoms reported, see HPI EENTM: see HPI, ear pain, throat pain Respiratory: see HPI, cough Gastrointestinal: see HPI, No abdominal pain, nausea, vomiting : No (prior history of hysterectomy, complete) All Other Systems Reviewed Negative Unless Noted: Yes Past Aznuoiy-Yemedz-Hjacjm Hx Patient Social History Alcohol Use: Denies Use Recreational Drug Use: No Smoking Status: Current Everyday Smoker Type Used: Cigarettes 2nd Hand Smoke Exposure: Yes Recent Foreign Travel: No Contact w/Someone Who Travel: No Recent Infectious Disease Expo: No Recent Hopitalizations: No Immunizations Up To Date Tetanus Booster (TDap): More than 5yrs Date of Pneumonia Vaccine: Sep 27, 2010 Date of Influenza Vaccine: Jul 21, 2013 Seasonal Allergies Seasonal Allergies: No Surgeries History of Surgeries: Yes (skin graft) Surgeries: Abdominal, Section, Gallbladder, Hysterectomy, Oophorectomy , Orthopedic, Tubal Ligation Respiratory History of Respiratory Disorde: Yes Respiratory Disorders: Asthma Cardiovascular History of Cardiac Disorders: Yes Cardiac Disorders: Hypertension, Irregular Heartbeat Neurological History of Neurological Disord: Yes Neurological Disorders: Concussion, Headaches /Migraines, Seizure Disorder Reproductive System : No Hx Reproductive Disorders: No Sexually Transmitted Disease: No HIV/AIDS: No Female Reproductive Disorders: Menstrual Problems, 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 Genitourinary History of Genitourinary Disor: Yes Genitourinary Disorders: UTI-Chronic Gastrointestinal History of Gastrointestinal Di: Yes (S/P ASHVIN; BENIGN COLON TUMOR-PER PT) Gastrointestinal Disorders: Gall Bladder Disease Musculoskeletal History of Musculoskeletal Dis: Yes Musculoskeletal Disorders: Fractures Endocrine History of Endocrine Disorders: No HEENT History of HEENT Disorders: No Cancer History of Cancer: No Psychosocial History of Psychiatric Problem: Yes Behavioral Health Disorders: Anxiety, Bipolar, Personality Disorder, Schizophrenia, Depression Integumentary History of Skin or Integumenta: No Blood Transfusions History of Blood Disorders: No Adverse Reaction to a Blood Tr: No Reviewed Nursing Assessment Reviewed/Agree w Nursing PMH: Yes Family Medical History Significant Family History: No Pertinent Family Hx Family Medial History: Cancer GRANDPARENTS Cataract GRANDPARENTS Congestive heart failure GRANDPARENTS Family history: Alzheimer's disease GRANDPARENTS Family history: Arthritis GRANDPARENTS Family history: Asthma 03 MOTHER 09 BROTHER GRANDPARENTS Family history: Cardiovascular disease GRANDPARENTS Family history: Diabetes mellitus GRANDPARENTS Family history: Hypertension 03 MOTHER GRANDPARENTS Heart disease 09 BROTHER GRANDPARENTS History of - respiratory disease GRANDPARENTS Kidney disease 09 BROTHER Prostate cancer GRANDPARENTS Stroke GRANDPARENTS No Family History of: Abdominal aortic aneurysm Family history: Breast disease Family history: Gastrointestinal disease Family history: Thyroid disorder Physical Exam Vital Signs Vital Sign - Last 12Hours Capillary Refill : Less Than 3 Seconds General Appearance: WD/WN, no apparent distress Eyes: Bilateral Eye Normal Inspection, Bilateral Eye PERRL, Bilateral Eye EOMI HEENT: PERRL/EOMI, pharynx normal, TM abnormal (R) (clear effusion trace erythema), TM abnormal (L) (marked erythema, bulging TM with clear to cloudy effusion) Neck: non-tender, full range of motion, supple, lymphadenopathy (L) Respiratory: chest non-tender, lungs clear, normal breath sounds Cardiovascular: normal peripheral pulses, regular rate, rhythm Gastrointestinal: normal bowel sounds, non tender, soft, No distended, No guarding, No rebound Extremities: normal range of motion, non-tender, normal inspection, no pedal edema, normal capillary refill Neurologic/Psychiatric: no motor/sensory deficits, alert, normal mood/affect, oriented x 3 Skin: normal color, warm/dry, other (skin turgor immediate) Progress/Results/Core Measures Results/Orders My Orders Orders - DENNISE SWANN Ondansetron Oral Dissolve Tab (Zofran (09/13/17 19:05) Acetaminophen Tablet/Caplet (Tylenol T (09/13/17 19:05) Vital Signs/I&O Vital Sign - Last 12Hours 09/13/17 09/13/17 09/13/17 09/13/17 19:02 19:02 19:12 19:46 Temp 97.7 97.7 97.6 Pulse 86 68 Resp 20 18 B/P (MAP) 176/105 Pulse Ox 98 98 O2 Delivery Room Air Room Air Room Air Blood Pressure Mean: 128 Progress Note : Time: 19:00 Progress Note Initial evaluation completed, Zofran 8 mg sublingual. 193 patient reports nausea has improved, ear pain is slightly better. The discharge instructions including clear liquid diet for 4-6 hours, requesting note for work as she had to leave early today and does not feel she will be able to return tomorrow. Departure Impression Impression: Primary Impression: Nausea & vomiting Qualified Codes: G43.A1 - Cyclical vomiting, intractable Additional Impressions: Otitis media Qualified Codes: H65.02 - Acute serous otitis media, left ear Essential (primary) hypertension Disposition: HOME, SELF-CARE Condition: Stable Departure-Patient Inst. Decision time for Depature: 19:10 Referrals: [facility] (PCP) Primary Care Physician BUBBA ZARATE (Family) Primary Care Physician Patient Instructions: Cough, Adult (DC), High Blood Pressure (DC), Serous Otitis Media (DC) Add. Discharge Instructions: Clear liquid diet for the next 4-6 hours. Use Zofran as prescribed for nausea and vomiting. Alternate between Tylenol 650 mg and ibuprofen 600 mg every 4 hours for pain or fever. Take antibiotic as prescribed. Follow-up with primary care provider if no improvement or worsening of symptoms , in 1-2 days. Return to emergency Department for fever greater than 102 not relieved with Tylenol and ibuprofen, increased ear pain, continued vomiting, dehydration, or new problems. Schedule follow up in 1-2 weeks with Keena Zarate APRN for blood pressure check. All discharge instructions reviewed with patient and/or family. Voiced understanding. Scripts Ondansetron (Zofran Odt) 8 Mg Tab.rapdis 8 MG PO Q6H Y for NAUSEA/VOMITING-1ST LINE, #6 TAB 0 Refills Prov: DENNISE SWANN 09/13/17 Azithromycin (Zithromax) 250 Mg Tablet 250 MG PO UD, #6 TAB TAKE 2 TABLETS TODAY, THEN TAKE 1 TABLET DAILY FOR 4 MORE DAYS Prov: DENNISE SWANN 09/13/17 Work/School Note: Work Release Form Date Seen in the Emergency Department: Sep 13, 2017 Return to Work: Sep 15, 2017 Restrictions: No Restrictions Copy Copies To 1: JOHNIE FERNANDES MD, AMY ARNP Sep 13, 2017 19:11
[2017-09-13] MEDS ORDERED: AZIT250T PO (19:39)
[2017-09-13] MEDS ORDERED: ONDA8TAB9 PO (19:39)
[2017-09-13 19:46] VITALS: BP 150/102
== END 2017-09-13 19:47 | disposition home or self-care (01) ==
LOC: EDUNIT# 18:46 → ER 18:48
DX: H66.93 Otitis media, unspecified, bilateral (principal); R11.2 Nausea with vomiting, unspecified; I10 Essential (primary) hypertension; F41.9 Anxiety disorder, unspecified; F31.9 Bipolar disorder, unspecified; F20.9 Schizophrenia, unspecified; F60.9 Personality disorder, unspecified; F17.210 Nicotine dependence, cigarettes, uncomplicated; Z87.81 Personal history of (healed) traumatic fracture; Z87.42 Personal history of other diseases of the female genital tract; Z90.710 Acquired absence of both cervix and uterus; Z87.59 Personal history of other complications of pregnancy, childbirth and the puerperium; Z98.51 Tubal ligation status; Z90.49 Acquired absence of other specified parts of digestive tract
CPT/HCPCS: 99283

== ENCOUNTER → 2020-01-27 | Outpatient (CLI) | payer OTHER ==
[~2020-01-27] MED LIST changes: +AZIT250T PO; +ONDA8TAB9 PO; +TRM50T PO
--- NOTE | 2020-01-27 13:30 | Diagnostic Imaging Report ---
EXAMINATION: MRI of the right lower extremity without contrast dated 01/27/2020. TECHNIQUE: Multiplanar, multisequence non contrast-enhanced MRI of the right lower extremity was accomplished. INDICATION: Right knee pain. Popping and buckling since December of this year. FINDINGS: The extensor mechanism is intact. The ACL and PCL are intact. MCL and lateral collateral ligamentous complex are grossly intact. Many of the sequences are limited due to the knee coil not appropriately fitting patient's knee. The menisci in particular are not well seen on the coronal sequences. Nonetheless, no tears of the medial or lateral menisci appreciated. There is a rounded hypointensity posterior to the PCL most consistent with a loose body. The cartilage along the patellofemoral joint demonstrates some heterogeneity and thinning [id number] in nature with subchondral edema seen in the patellar apex itself. The cartilage in the medial joint compartment is grossly intact. The lateral compartment demonstrates at least mild thinning. IMPRESSION: 1. Menisci intact. 2. Ligaments and tendons intact. 3. Degenerative findings as above with loose body in the posterior aspect of the joint. Dictated by: Dictated on workstation # [id number]
== END ==
LOC: RAD 07:18
PROVIDERS: ATTEND Nurse Practitioner
DX: S83.8X1D Sprain of other specified parts of right knee, subsequent encounter (principal); J45.909 Unspecified asthma, uncomplicated; F31.9 Bipolar disorder, unspecified; G40.909 Epilepsy, unspecified, not intractable, without status epilepticus; M17.11 Unilateral primary osteoarthritis, right knee; R11.2 Nausea with vomiting, unspecified
CPT/HCPCS: 73721